=== PATIENT | male | born 1935 | race Caucasian/White ===

== ENCOUNTER → 2017-02-24 | Outpatient (CLI) | payer MEDICARE, BC, OTHER | LOC: M LAB 14:43 | PROVIDERS: ATTEND Urology | DX: Z85.46 Personal history of malignant neoplasm of prostate (principal); Z51.81 Encounter for therapeutic drug level monitoring; Z79.01 Long term (current) use of anticoagulants; I26.99 Other pulmonary embolism without acute cor pulmonale; I82.611 Acute embolism and thrombosis of superficial veins of right upper extremity ==

== ENCOUNTER → 2017-02-24 | Outpatient (CLI) | payer MEDICARE, BC, OTHER ==
[2017-02-24 15:40] LABS: INR 4.18
== END ==
LOC: M LAB 14:45
PROVIDERS: ATTEND Internal Medicine
DX: Z51.81 Encounter for therapeutic drug level monitoring (principal); Z79.01 Long term (current) use of anticoagulants; I26.99 Other pulmonary embolism without acute cor pulmonale; I82.611 Acute embolism and thrombosis of superficial veins of right upper extremity

== ENCOUNTER → 2017-04-02 | Outpatient (CLI) | payer MEDICARE, BC, OTHER ==
[2017-04-02 09:40] LABS: INR 3.56
== END ==
LOC: M LAB 09:01
PROVIDERS: ATTEND Internal Medicine
DX: Z79.01 Long term (current) use of anticoagulants (principal); I26.99 Other pulmonary embolism without acute cor pulmonale; I82.611 Acute embolism and thrombosis of superficial veins of right upper extremity

== ENCOUNTER → 2017-04-06 | Outpatient (CLI) | payer MEDICARE, BC, OTHER ==
[2017-04-06 10:09] LABS: BASO % 0.8 % (0.0-1.0); EOS # 0.3 K/mm3 (0.0-0.50); EOS % 7.2 % (0.0-3.0); LARGE UNSTAINED CELL # 0.1 K/mm3 (0.0-0.4); LYMPH # 0.6 K/mm3 (1.5-4.5); LYMPH % 10.6 % (24.0-44.0); MEAN CORPUSCULAR HEMOGLOBIN 30.8 pg (27.0-33.0); MEAN CORPUSCULAR HGB CONC 34.1 g/dl (32.0-36.5); MEAN CORPUSCULAR VOLUME 90.5 fl (80.0-96.0); MONO # 0.5 K/mm3 (0.0-0.8); MONO % 9.4 % (0.0-5.0); NEUTROPHILS # 3.3 K/mm3 (1.8-7.7); NEUTROPHILS % 70.1 % (36.0-66.0); PLATELET COUNT, AUTOMATED 233 k/mm3 (150-450); WHITE BLOOD COUNT 4.8 K/mm3 (4.0-10.0)
[2017-04-06 11:10] LABS: ALBUMIN 3.4 GM/DL (3.2-5.2); ALBUMIN/GLOBULIN RATIO 1.26 (1.00-1.93); ALKALINE PHOSPHATASE 73 U/L (45-117); ALT/SGPT 36 U/L (12-78); ANION GAP 6 MEQ/L (8-16); AST/SGOT 24 U/L (15-37); BILIRUBIN,TOTAL 0.8 MG/DL (0.2-1.0); BLOOD UREA NITROGEN 14 MG/DL (7-18); CALCIUM LEVEL 8.8 MG/DL (8.8-10.2); CARBON DIOXIDE LEVEL 28 MEQ/L (21-32); CHLORIDE LEVEL 101 MEQ/L (98-107); CHOLESTEROL LEVEL 175 MG/DL (<200); CREATININE FOR GFR 0.73 MG/DL (0.70-1.30); FREE T4 1.13 NG/DL (0.76-1.46); GLOMERULAR FILTRATION RATE > 60.0 (>42); GLUCOSE, FASTING 90 MG/DL (83-110); POTASSIUM SERUM 4.1 MEQ/L (3.5-5.1); SODIUM LEVEL 135 MEQ/L (136-145); TOTAL PROTEIN 6.1 GM/DL (6.4-8.2); TRIGLYCERIDES LEVEL 140 MG/DL (<150)
== END ==
LOC: M LAB 08:57
PROVIDERS: ATTEND Internal Medicine
DX: Z51.81 Encounter for therapeutic drug level monitoring (principal); Z79.01 Long term (current) use of anticoagulants; I26.99 Other pulmonary embolism without acute cor pulmonale; I82.611 Acute embolism and thrombosis of superficial veins of right upper extremity; M79.1 Myalgia; Z79.4 Long term (current) use of insulin; E11.9 Type 2 diabetes mellitus without complications; E78.00 Pure hypercholesterolemia, unspecified; E55.9 Vitamin D deficiency, unspecified

== ENCOUNTER → 2017-04-19 | Outpatient (CLI) | payer MEDICARE, BC, OTHER ==
[2017-04-19 14:28] LABS: INR 2.56
== END ==
LOC: M LAB 13:37
PROVIDERS: ATTEND Internal Medicine
DX: Z51.81 Encounter for therapeutic drug level monitoring (principal); Z79.01 Long term (current) use of anticoagulants; I26.99 Other pulmonary embolism without acute cor pulmonale; I82.611 Acute embolism and thrombosis of superficial veins of right upper extremity

== ENCOUNTER → 2017-05-08 | Outpatient (CLI) | payer MEDICARE, BC, OTHER ==
[2017-05-08 18:56] LABS: INR 2.14
== END ==
LOC: M LAB 17:42
PROVIDERS: ATTEND Internal Medicine
DX: I82.611 Acute embolism and thrombosis of superficial veins of right upper extremity (principal); Z79.01 Long term (current) use of anticoagulants; I26.99 Other pulmonary embolism without acute cor pulmonale; Z51.81 Encounter for therapeutic drug level monitoring

== ENCOUNTER → 2017-05-20 | Outpatient (REF) | payer MEDICARE, BC, OTHER | LOC: M LAB REF 08:30 | PROVIDERS: ATTEND Internal Medicine Gastroenterology | DX: R19.4 Change in bowel habit (principal); A04.7 Enterocolitis due to Clostridium difficile ==

== ENCOUNTER → 2017-05-31 | Outpatient (CLI) | payer MEDICARE, BC, OTHER ==
[2017-05-31 08:41] LABS: INR 2.14
== END ==
LOC: M LAB 08:02
PROVIDERS: ATTEND Internal Medicine
DX: Z79.01 Long term (current) use of anticoagulants (principal); I82.611 Acute embolism and thrombosis of superficial veins of right upper extremity; I26.99 Other pulmonary embolism without acute cor pulmonale; Z51.81 Encounter for therapeutic drug level monitoring

== ENCOUNTER → 2017-06-21 | Outpatient (CLI) | payer MEDICARE, BC, OTHER ==
[2017-06-21 09:09] LABS: INR 2.35
== END ==
LOC: M LAB 08:06
PROVIDERS: ATTEND Internal Medicine
DX: I82.611 Acute embolism and thrombosis of superficial veins of right upper extremity (principal); Z51.81 Encounter for therapeutic drug level monitoring; I26.99 Other pulmonary embolism without acute cor pulmonale; Z79.01 Long term (current) use of anticoagulants

== ENCOUNTER → 2017-07-19 | Outpatient (CLI) | payer MEDICARE, BC, OTHER ==
[2017-07-19 09:21] LABS: INR 1.51
== END ==
LOC: M LAB 08:10
PROVIDERS: ATTEND Internal Medicine
DX: Z51.81 Encounter for therapeutic drug level monitoring (principal); Z79.01 Long term (current) use of anticoagulants

== ENCOUNTER → 2017-07-19 | Outpatient (CLI) | payer MEDICARE, BC, OTHER | LOC: M LAB 08:06 | PROVIDERS: ATTEND Urology | DX: Z51.81 Encounter for therapeutic drug level monitoring (principal); Z79.01 Long term (current) use of anticoagulants; Z85.46 Personal history of malignant neoplasm of prostate ==

== ENCOUNTER → 2018-04-07 | Outpatient (CLI) | payer MEDICARE, BC, OTHER ==
[2018-04-07 09:00] LABS: CHOLESTEROL LEVEL 348 MG/DL (<200); FREE T4 0.95 NG/DL (0.76-1.46); HDL CHOLESTEROL 58 MG/DL (>40); LDL CHOLESTEROL 229.4 MG/DL (<100); NON-HDL-C 290 MG/DL; TRIGLYCERIDES LEVEL 303 MG/DL (<150)
[2018-04-07 09:44] LABS: ESTIMATED AVERAGE GLUCOSE 134 MG/DL (60-110); HEMOGLOBIN A1c 6.3 %
== END ==
LOC: M LAB 08:02
DX: E11.9 Type 2 diabetes mellitus without complications (principal)
CPT/HCPCS: 84443

== ENCOUNTER → 2018-06-09 | Outpatient (CLI) | payer MEDICARE, BC, OTHER ==
[2018-06-09 12:15] LABS: BASO # 0.1 10^3/uL (0.0-0.2); BASO % 1.2 % (0.0-1.0); EOS # 0.2 10^3/uL (0.0-0.50); EOS % 5.3 % (0.0-3.0); HEMATOCRIT 46.4 % (42.0-52.0); HEMOGLOBIN 15.1 g/dl (13.5-17.5); IMMATURE GRANULOCYTE % 0.2 % (0-3.0); LYMPH # 0.6 10^3/uL (1.5-4.5); LYMPH % 13.2 % (24.0-44.0); MEAN CORPUSCULAR HEMOGLOBIN 27.8 pg (27.0-33.0); MEAN CORPUSCULAR HGB CONC 32.5 g/dl (32.0-36.5); MEAN CORPUSCULAR VOLUME 85.5 fl (80.0-96.0); MONO # 0.6 10^3/uL (0.0-0.8); MONO % 13.6 % (0.0-5.0); NEUTROPHILS # 2.9 10^3/uL (1.8-7.7); NEUTROPHILS % 66.5 % (36.0-66.0); PLATELET COUNT, AUTOMATED 268 10^3/uL (150-450); RED BLOOD COUNT 5.43 10^6/uL (4.30-6.10); RED CELL DISTRIBUTION WIDTH 15.4 % (11.5-14.5); WHITE BLOOD COUNT 4.3 10^3/uL (4.0-10.0)
[2018-06-09 12:48] LABS: ESTIMATED AVERAGE GLUCOSE 137 MG/DL (60-110); HEMOGLOBIN A1c 6.4 %
[2018-06-09 12:49] LABS: ALBUMIN 3.5 GM/DL (3.2-5.2); ALBUMIN/GLOBULIN RATIO 1.06 (1.00-1.93); ALKALINE PHOSPHATASE 75 U/L (45-117); ALT/SGPT 26 U/L (12-78); ANION GAP 8 MEQ/L (8-16); AST/SGOT 13 U/L (7-37); BILIRUBIN,TOTAL 0.6 MG/DL (0.2-1.0); BLOOD UREA NITROGEN 11 MG/DL (7-18); CALCIUM LEVEL 9.2 MG/DL (8.8-10.2); CARBON DIOXIDE LEVEL 29 MEQ/L (21-32); CHLORIDE LEVEL 106 MEQ/L (98-107); CREATININE FOR GFR 0.82 MG/DL (0.70-1.30); FREE T4 0.94 NG/DL (0.76-1.46); GLOMERULAR FILTRATION RATE > 60.0 (>35); GLUCOSE, FASTING 113 MG/DL (70-100); POTASSIUM SERUM 4.3 MEQ/L (3.5-5.1); SODIUM LEVEL 143 MEQ/L (136-145); TOTAL PROTEIN 6.8 GM/DL (6.4-8.2)
[2018-06-09 14:01] LABS: VITAMIN B12 LEVEL 490 PG/ML
[2018-06-09 16:55] LABS: FOLATE > 24.0 NG/ML
[2018-06-16 00:07] LABS: VITAMIN B1 LEVEL WHOLE BLOOD 163.6 nmol/L (66.5-200.0); VITAMIN B6,PYRIDOXAL PHOSPHATE 37.1 ug/L (5.3-46.7); VITAMIN E(ALPHA TOCOPHEROL) 18.7 mg/L (9.0-29.0); VITAMIN E(GAMMA TOCOPHEROL) 1.1 mg/L (0.5-4.9)
== END ==
LOC: M LAB 11:02
DX: G45.9 Transient cerebral ischemic attack, unspecified (principal); Z13.29 Encounter for screening for other suspected endocrine disorder; Z11.3 Encounter for screening for infections with a predominantly sexual mode of transmission; R41.3 Other amnesia
CPT/HCPCS: 82746

== ENCOUNTER → 2018-07-20 | Outpatient (CLI) | payer MEDICARE, BC, OTHER ==
[2018-07-20 14:00] LABS: PROSTATIC SPECIFIC AG MONITOR 0.03 NG/ML (< 4.0)
== END ==
LOC: M LAB 12:58
DX: Z85.46 Personal history of malignant neoplasm of prostate (principal)
CPT/HCPCS: 84153

== ENCOUNTER → 2019-02-16 | Outpatient (CLI) | payer MEDICARE, BC, OTHER | LOC: M LAB 11:27 | PROVIDERS: ATTEND Urology | DX: C61 Malignant neoplasm of prostate (principal) ==

== ENCOUNTER → 2019-03-22 | Outpatient (CLI) | payer MEDICARE, BC, OTHER ==
[2019-03-22 11:22] LABS: HEMATOCRIT 49.6 % (42.0-52.0); HEMOGLOBIN 16.8 g/dl (13.5-17.5); MEAN CORPUSCULAR HEMOGLOBIN 31.5 pg (27.0-33.0); MEAN CORPUSCULAR HGB CONC 33.9 g/dl (32.0-36.5); MEAN CORPUSCULAR VOLUME 93.1 fl (80.0-96.0); PLATELET COUNT, AUTOMATED 304 10^3/uL (150-450); RED BLOOD COUNT 5.33 10^6/uL (4.30-6.10); WHITE BLOOD COUNT 6.5 10^3/uL (4.0-10.0)
[2019-03-22 11:41] LABS: BLOOD UREA NITROGEN 10 MG/DL (7-18); CALCIUM LEVEL 9.2 MG/DL (8.8-10.2); CARBON DIOXIDE LEVEL 28 MEQ/L (21-32); CHLORIDE LEVEL 104 MEQ/L (98-107); GLOMERULAR FILTRATION RATE > 60.0 (>35); GLUCOSE, FASTING 161 MG/DL (70-100); POTASSIUM SERUM 4.4 MEQ/L (3.5-5.1); SODIUM LEVEL 138 MEQ/L (136-145)
== END ==
LOC: M LAB 10:46
DX: Z51.81 Encounter for therapeutic drug level monitoring (principal); Z79.01 Long term (current) use of anticoagulants; I26.99 Other pulmonary embolism without acute cor pulmonale; I82.611 Acute embolism and thrombosis of superficial veins of right upper extremity

== ENCOUNTER 2019-04-18 09:40 | Day surgery (SDC) | payer MEDICARE, BC, OTHER ==
[~2019-04-18] VITALS: Ht 177.8 cm; Wt 74.6 kg
[~2019-04-18 09:40] MED LIST: ALBU83IN; CENT1TAB PO; ELIQ5TAB PO; FLOM0.4C39 PO; LIDOCAINE 1% MDV 20ML VIAL SQ PRN; LISI-1046 PO; LR 1,000 ML IV ONE; PLAV1TAB2 PO; VYTO10TA25 PO; ceFAZolin SOD 1 GM in D5W MINI-BAG PLUS 50 ML IV ONE
[2019-04-18] MEDS ORDERED: fentaNYL 100 MCG/2 ML INJECTION (J3010) As Ordered ONE (11:09)
[2019-04-18] MEDS ORDERED: PROPOFOL 500 MG/50 ML VIAL As Ordered ONE (11:09)
[2019-04-18] MEDS ORDERED: LIDOCAINE 2% INJ 100 MG/5 ML SDV (FOR ANES.) As Ordered ONE (11:09)
[2019-04-18] MEDS ORDERED: ALBU83IN INH (11:43)
[2019-04-18] MEDS ORDERED: BUPIVACAINE/EPIN 0.25% 30 ML VIAL As Ordered ONE (12:31)
[2019-04-18] MEDS ORDERED: ePHEDrine SULFATE 25 MG/5 ML(5MG/ML) SYRINGE As Ordered ONE (13:19)
[2019-04-18] MEDS ORDERED: GLYCOPYRROLATE INJ 0.2 MG/ML 2 ML VIAL As Ordered ONE (13:19)
[2019-04-18 14:30] VITALS: BP 139/71
[2019-04-18] MEDS ORDERED: LR 1,000 ML IV SCH (14:30)
[2019-04-18] MEDS ORDERED: ONDANSETRON 4MG/2ML VIAL (J2405) IV PRN (14:30)
[2019-04-18] MEDS ORDERED: PERCOCET 5MG/325MG TAB PO PRN (14:30)
--- NOTE | 2019-05-02 15:10 | RO ---
DATE OF PROCEDURE: 04/18/2019 PREOPERATIVE DIAGNOSIS: Left forearm skin lesion (skin cancer). POSTOPERATIVE DIAGNOSIS: Left forearm skin lesion (skin cancer). PROCEDURE: Excision of left forearm skin cancer (3 cm with complex layered closure). SURGEON: Dr. Dagoberto Hernandez ANESTHESIA: IV sedation plus local. ESTIMATED BLOOD LOSS: Minimal. FLUIDS: Crystalloid. BRIEF PROCEDURE AND SUMMARY: The patient was brought to the operating room and was given IV sedation and was prepped and draped in the usual sterile fashion and local lidocaine mixed with epinephrine was infiltrated into the skin, subcutaneous tissue on the left arm. The lesion itself was almost 3 cm in length and almost 2 cm in width and there was some thickening of the skin edges this to get adequate margins a significant elliptical skin incision was performed along the length of his left arm and this was removed with a combination of sharp and blunt dissection and electrocautery. The skin itself was removed and sent to pathology. It did not seem to involve the underlying fascia or be invasive underlying fascia. The patient did have significant focal skin loss in this area and thus to move enough skin I needed to create some skin flaps bilaterally and after creating the skin flaps off the fascia the incision ended up being almost 15 cm in length. The dissection of the tissue eventually made it so that the underlying dermis could be brought together and starting from each end I worked towards the middle where the biggest gap was and eventually this came together adequately but with still some skin tension in this area. The skin was so atrophic though there was a very attenuated dermis that I felt was not amenable to subcuticular closure and thus I used philippe to close the incision after this two-layered closure of #2-0 Vicryl deep layer and #3-0 Vicryl superficial subcutaneous tissue. Antibiotic ointment and dry sterile dressing was applied and a Coban wrap. The patient was awakened from his sedation, brought to recovery room, awake, alert, hemodynamically stable. Sponge and needle counts correct times two.
== END 2019-04-18 14:42 | disposition home or self-care (01) ==
LOC: M SDC 09:40
PROVIDERS: ATTEND Surgery
DX: C44.629 Squamous cell carcinoma of skin of left upper limb, including shoulder (principal); I10 Essential (primary) hypertension; E78.5 Hyperlipidemia, unspecified; I73.9 Peripheral vascular disease, unspecified; Z79.01 Long term (current) use of anticoagulants; Z79.899 Other long term (current) drug therapy; D86.0 Sarcoidosis of lung; Z92.3 Personal history of irradiation
CPT/HCPCS: 11603; 13121; 88305; J0690; J3010

== ENCOUNTER → 2019-05-25 | Outpatient (CLI) | payer MEDICARE, BC, OTHER ==
[~2019-05-25] MED LIST changes: +ALBU83IN INH; -LIDOCAINE 1% MDV 20ML VIAL SQ PRN; -LR 1,000 ML IV ONE; -ceFAZolin SOD 1 GM in D5W MINI-BAG PLUS 50 ML IV ONE
[2019-05-25 09:09] LABS: BASO % 0.9 % (0.0-1.0); EOS # 0.3 10^3/uL (0.0-0.50); EOS % 6.8 % (0.0-3.0); HEMATOCRIT 47.5 % (42.0-52.0); HEMOGLOBIN 15.6 g/dl (13.5-17.5); LYMPH # 0.8 10^3/uL (1.5-4.5); LYMPH % 17.1 % (24.0-44.0); MEAN CORPUSCULAR HGB CONC 32.8 g/dl (32.0-36.5); MEAN CORPUSCULAR VOLUME 94.4 fl (80.0-96.0); MONO # 0.6 10^3/uL (0.0-0.8); NEUTROPHILS # 2.7 10^3/uL (1.8-7.7); NEUTROPHILS % 61.1 % (36.0-66.0); PLATELET COUNT, AUTOMATED 238 10^3/uL (150-450); RED BLOOD COUNT 5.03 10^6/uL (4.30-6.10); WHITE BLOOD COUNT 4.4 10^3/uL (4.0-10.0)
[2019-05-25 09:28] LABS: ALBUMIN 3.5 GM/DL (3.2-5.2); ALT/SGPT 27 U/L (12-78); BILIRUBIN,TOTAL 0.9 MG/DL (0.2-1.0); BLOOD UREA NITROGEN 22 MG/DL (7-18); CALCIUM LEVEL 8.9 MG/DL (8.8-10.2); CARBON DIOXIDE LEVEL 26 MEQ/L (21-32); CHLORIDE LEVEL 108 MEQ/L (98-107); CHOLESTEROL LEVEL 161 MG/DL (<200); CHOLESTEROL RISK RATIO 2.205 (<5); CREATININE FOR GFR 0.87 MG/DL (0.70-1.30); GLOMERULAR FILTRATION RATE > 60.0 (>35); GLUCOSE, FASTING 102 MG/DL (70-100); HDL CHOLESTEROL 73 MG/DL (>40); LDL CHOLESTEROL 67 MG/DL (<100); NON-HDL-C 88 MG/DL; POTASSIUM SERUM 4.5 MEQ/L (3.5-5.1); SODIUM LEVEL 140 MEQ/L (136-145); TOTAL PROTEIN 6.5 GM/DL (6.4-8.2); TRIGLYCERIDES LEVEL 107 MG/DL (<150)
[2019-05-25 11:00] LABS: HEMOGLOBIN A1c 6.7 %
== END ==
LOC: M LAB 08:27
PROVIDERS: ATTEND Nurse Practitioner Family
DX: Z00.00 Encounter for general adult medical examination without abnormal findings (principal); Z79.899 Other long term (current) drug therapy

== ENCOUNTER → 2019-07-24 | Outpatient (CLI) | payer MEDICARE, BC, OTHER ==
[2019-07-24 12:18] LABS: BLOOD UREA NITROGEN 16 MG/DL (7-18); CREATININE FOR GFR 0.86 MG/DL (0.70-1.30); GLOMERULAR FILTRATION RATE > 60.0 (>35)
== END ==
LOC: M LAB 11:31
PROVIDERS: ATTEND Urology
DX: R31.1 Benign essential microscopic hematuria (principal)

== ENCOUNTER → 2019-07-27 | Outpatient (CLI) | payer MEDICARE, BC, OTHER ==
[~2019-07-27] MED LIST changes: +ISOVUE-370 76% 100ML VIAL (Q9967) As Ordered ONE
--- NOTE | 2019-07-27 15:41 | REP ---
CT abdomen and pelvis without and with IV contrast: CT urography: History: Gross hematuria. The patient gives a history of prostate carcinoma. Comparison is made with CT chest imaging from December 25, 2014. CT contrast dose: 100 mL of intravenous Isovue 370. CT findings: Preliminary digital director banking radiograph shows a normal bowel gas pattern. There are fiducial markers visible at the level of the prostate. There is a large discogenic spur on the right at L2-3. There are nodular opacities in the lower lobes bilaterally which appear to be similar to or unchanged from the findings on CT study December 25, 2014 in this patient suggesting granulomatous disease. No pleural effusion is seen. The liver and the spleen are normal in size, homogeneous in texture. There is a subcentimeter cyst in the right lobe of the liver inferiorly. No adrenal lesion is seen on either side. There is no abnormality in the pancreas. The gallbladder is unremarkable. 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 The aorta measures 3.5 cm in right to left dimension by 2.5 cm anteroposterior. There is moderate vascular calcification. There is no evidence of upper tract intrarenal calculus. No hydronephrosis is seen on either side. There is a tiny cortical cyst in the left mid kidney measuring 9 mm in greatest diameter. There is a complex cyst projecting peripherally in the lower pole of the left kidney. This measures 3.5 x 2.8 x 2.9 cm. There is slight wall thickening and slight contrast enhancement in the wall of the cyst on postcontrast images. No nodule is appreciated. This is not included in the field of view of the prior chest CT. There is no comparison imaging. No bladder calculus is seen. There is no evidence of enhancing bladder mass or filling defect on delayed images in the urinary bladder. Fiducial markers are seen in the prostate bed. Delayed scans show no filling defect in the collecting system on either side. Ureters describe a normal course to the urinary bladder. There is left colonic diverticulosis without CT evidence of diverticulitis. Small and large intestinal bowel loops are unremarkable. No bony destructive lesion is appreciated. Impression: Complex cystic lesion lower pole left kidney, 3.5 cm in greatest diameter with slightly thickened wall and wall enhancement. 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 Followup imaging recommended. Fiducial markers are seen in the prostate bed. There is a infrarenal abdominal aortic aneurysm measuring 3.5 cm in right to left dimension. Electronically Signed by Stanton Mcgovern MD 07/27/2019 04:32 P
== END ==
LOC: M RAD 09:11
PROVIDERS: ATTEND Urology
DX: R31.0 Gross hematuria (principal); N28.1 Cyst of kidney, acquired
CPT/HCPCS: 74178; Q9967

== ENCOUNTER → 2020-06-25 | Outpatient (CLI) | payer BC, OTHER ==
[~2020-06-25] MED LIST changes: -ISOVUE-370 76% 100ML VIAL (Q9967) As Ordered ONE; -LISI-1046 PO; +LISI2.5T2 PO
== END ==
LOC: M LAB 09:30
PROVIDERS: ATTEND Nurse Practitioner Adult Health
DX: Z85.46 Personal history of malignant neoplasm of prostate (principal)

== ENCOUNTER → 2021-03-14 | Outpatient (CLI) | payer MEDICARE, BC, OTHER | LOC: M LAB 10:56 | PROVIDERS: ATTEND Nurse Practitioner Adult Health | DX: Z85.46 Personal history of malignant neoplasm of prostate (principal) ==

== ENCOUNTER → 2022-03-07 | Outpatient (CLI) | payer MEDICARE, BC, OTHER ==
[~2022-03-07] MED LIST changes: -LISI2.5T2 PO; +LISI2.5T9 PO
[2022-03-07 10:37] LABS: BLOOD UREA NITROGEN 19 MG/DL (7-18); CARBON DIOXIDE LEVEL 27 MEQ/L (21-32); CHLORIDE LEVEL 108 MEQ/L (98-107); CREATININE FOR GFR 0.86 MG/DL (0.70-1.30); GLOMERULAR FILTRATION RATE > 60.0 (>35); GLUCOSE, FASTING 136 MG/DL (70-100); POTASSIUM SERUM 4.3 MEQ/L (3.5-5.1); SODIUM LEVEL 138 MEQ/L (136-145)
[2022-03-07 10:38] LABS: CALCIUM LEVEL 8.9 MG/DL (8.8-10.2)
[2022-03-10 23:09] LABS: PSA TOTAL <0.1 ng/mL (0.0-4.0)
== END ==
LOC: M LAB 09:42
PROVIDERS: ATTEND Urology
DX: D41.02 Neoplasm of uncertain behavior of left kidney (principal); Z85.46 Personal history of malignant neoplasm of prostate

== ENCOUNTER → 2022-04-04 | Outpatient (CLI) | payer MEDICARE, BC, OTHER ==
[~2022-04-04] MED LIST changes: +ALBU2.5V10; +ALBU2.5V10 INH; -ALBU83IN; -ALBU83IN INH
[2022-04-04 11:02] LABS: ALBUMIN 3.5 GM/DL (3.2-5.2); BLOOD UREA NITROGEN 10 MG/DL (7-18); CALCIUM LEVEL 9.3 MG/DL (8.8-10.2); CARBON DIOXIDE LEVEL 29 MEQ/L (21-32); CHLORIDE LEVEL 105 MEQ/L (98-107); CREATININE FOR GFR 0.79 MG/DL (0.70-1.30); GLOMERULAR FILTRATION RATE > 60.0 (>35); GLUCOSE, FASTING 91 MG/DL (70-100); PHOSPHORUS LEVEL 3.1 MG/DL (2.5-4.9); POTASSIUM SERUM 4.3 MEQ/L (3.5-5.1); SODIUM LEVEL 139 MEQ/L (136-145)
== END ==
LOC: M LAB 09:16
PROVIDERS: ATTEND Physician Assistant
DX: R05.9 Cough, unspecified (principal)

== ENCOUNTER → 2022-07-21 | Outpatient (CLI) | payer MEDICARE, BC, OTHER ==
[~2022-07-21] MED LIST changes: +ALBU8.5H INH; +BACT800T5 PO; +BACTDSTA; +CLOP75TA99 PO; +DEXT4TAB83 PO; +EZET-20 PO; +EZET1TAB96 PO; +GLUC1INJ21 SC; +INSUHUMDS SC; +KETO2CR EXT; +MEMA1TAB3; +MEMA1TAB3 PO; +METF-838; +METF-838 PO; +MULT-40 PO; +NS10IV IV; +PANT20TA6; +PANT20TA6 PO; -PLAV1TAB2 PO; +SERT25TA21; +SERT25TA21 PO; -VYTO10TA25 PO
== END ==
LOC: M PLAIMG 10:58
PROVIDERS: ATTEND Internal Medicine Pulmonary Disease
DX: D86.9 Sarcoidosis, unspecified (principal); J84.10 Pulmonary fibrosis, unspecified; R91.8 Other nonspecific abnormal finding of lung field; I77.810 Thoracic aortic ectasia; M47.9 Spondylosis, unspecified

== ENCOUNTER 2022-07-29 08:51 | Emergency (ER) | payer MEDICARE, BC, OTHER ==
[~2022-07-29] VITALS: Ht 177.8 cm; Wt 75.0 kg
[~2022-07-29 08:51] MED LIST changes: -ALBU8.5H INH; -BACT800T5 PO; -BACTDSTA; -CLOP75TA99 PO; -DEXT4TAB83 PO; -EZET1TAB96 PO; -GLUC1INJ21 SC; -INSUHUMDS SC; -KETO2CR EXT; -MEMA1TAB3; -MEMA1TAB3 PO; -METF-838; -METF-838 PO; -MULT-40 PO; -NS10IV IV; -PANT20TA6; -PANT20TA6 PO; +PLAV1TAB2 PO; -SERT25TA21; -SERT25TA21 PO
[2022-07-29] MEDS ORDERED: METF-838 (08:57)
[2022-07-29] MEDS ORDERED: BACTDSTA (08:57)
[2022-07-29] MEDS ORDERED: MEMA1TAB3 (08:57)
[2022-07-29] MEDS ORDERED: SERT25TA21 (08:57)
[2022-07-29] MEDS ORDERED: PANT20TA6 (08:57)
[2022-07-29 10:49] LABS: BASO % 0.5 % (0.0-1.0); EOS # 0.3 10^3/uL (0.0-0.5); EOS % 4.6 % (0.0-3.0); HEMATOCRIT 43.5 % (42.0-52.0); HEMOGLOBIN 14.6 g/dl (13.5-17.5); LYMPH # 0.7 10^3/uL (1.5-5.0); LYMPH % 9.5 % (24.0-44.0); MEAN CORPUSCULAR HEMOGLOBIN 31.1 pg (27.0-33.0); MEAN CORPUSCULAR HGB CONC 33.6 g/dl (32.0-36.5); MEAN CORPUSCULAR VOLUME 92.6 fl (80.0-96.0); MONO # 0.9 10^3/uL (0.0-0.8); MONO % 12.4 % (2.0-8.0); NEUTROPHILS # 5.3 10^3/uL (1.5-8.5); NEUTROPHILS % 72.5 % (36.0-66.0); PLATELET COUNT, AUTOMATED 261 10^3/uL (150-450); WHITE BLOOD COUNT 7.3 10^3/uL (4.0-10.0)
[2022-07-29 11:04] LABS: INR 1.1; PROTHROMBIN TIME 14.6 SECONDS (12.7-14.5)
[2022-07-29 11:33] LABS: BLOOD UREA NITROGEN 12 MG/DL (7-18); CALCIUM LEVEL 8.9 MG/DL (8.8-10.2); CARBON DIOXIDE LEVEL 29 MEQ/L (21-32); CHLORIDE LEVEL 105 MEQ/L (98-107); GLOMERULAR FILTRATION RATE > 60.0 (>35); GLUCOSE, FASTING 103 MG/DL (70-100); POTASSIUM SERUM 4.4 MEQ/L (3.5-5.1); SODIUM LEVEL 136 MEQ/L (136-145)
[2022-07-29 12:07] VITALS: BP 153/81
[2022-08-19] MEDS ORDERED: PLAV1TAB2 PO (10:21)
== END 2022-07-29 12:09 | disposition home or self-care (01) ==
LOC: M ED 08:51
DX: L03.115 Cellulitis of right lower limb (principal); L97.519 Non-pressure chronic ulcer of other part of right foot with unspecified severity; E11.9 Type 2 diabetes mellitus without complications; I10 Essential (primary) hypertension; Z86.718 Personal history of other venous thrombosis and embolism; Z86.711 Personal history of pulmonary embolism; I73.9 Peripheral vascular disease, unspecified; Z79.01 Long term (current) use of anticoagulants; Z79.02 Long term (current) use of antithrombotics/antiplatelets; Z79.899 Other long term (current) drug therapy; Z91.018 Allergy to other foods

== ENCOUNTER 2022-08-06 16:47 | Inpatient (IN) | payer MEDICARE, BC, OTHER ==
[~2022-08-06] VITALS: Ht 177.8 cm; Wt 73.1 kg
[~2022-08-06 16:47] MED LIST changes: +BACTDSTA; +MEMA1TAB3; +METF-838; +PANT20TA6; +SERT25TA21
[2022-08-06 19:33] LABS: BASO % 0.2 % (0.0-1.0); EOS # 0.3 10^3/uL (0.0-0.5); EOS % 4.9 % (0.0-3.0); HEMATOCRIT 41.4 % (42.0-52.0); HEMOGLOBIN 14.3 g/dl (13.5-17.5); LYMPH # 0.5 10^3/uL (1.5-5.0); LYMPH % 8.4 % (24.0-44.0); MEAN CORPUSCULAR HEMOGLOBIN 30.2 pg (27.0-33.0); MEAN CORPUSCULAR HGB CONC 34.5 g/dl (32.0-36.5); MEAN CORPUSCULAR VOLUME 87.5 fl (80.0-96.0); MONO # 0.7 10^3/uL (0.0-0.8); MONO % 12.6 % (2.0-8.0); NEUTROPHILS # 3.9 10^3/uL (1.5-8.5); NEUTROPHILS % 73.3 % (36.0-66.0); PLATELET COUNT, AUTOMATED 231 10^3/uL (150-450); RED BLOOD COUNT 4.73 10^6/uL (4.30-6.10); WHITE BLOOD COUNT 5.3 10^3/uL (4.0-10.0)
[2022-08-06 20:02] LABS: ALBUMIN 2.9 GM/DL (3.2-5.2); ALT/SGPT 134 U/L (12-78); BILIRUBIN,DIRECT 0.4 MG/DL (0.0-0.2); BILIRUBIN,TOTAL 0.8 MG/DL (0.2-1.0); BLOOD UREA NITROGEN 17 MG/DL (7-18); CALCIUM LEVEL 8.7 MG/DL (8.8-10.2); CARBON DIOXIDE LEVEL 23 MEQ/L (21-32); CHLORIDE LEVEL 97 MEQ/L (98-107); CREATININE FOR GFR 0.72 MG/DL (0.70-1.30); GLOMERULAR FILTRATION RATE > 60.0 (>35); GLUCOSE, FASTING 127 MG/DL (70-100); POTASSIUM SERUM 4.3 MEQ/L (3.5-5.1); SODIUM LEVEL 130 MEQ/L (136-145); TOTAL PROTEIN 5.9 GM/DL (6.4-8.2)
[2022-08-06 20:04] LABS: RSV AMPLIFICATION NEGATIVE (NEGATIVE)
[2022-08-06 20:12] LABS: FREE T4 1.55 NG/DL (0.76-1.46)
[2022-08-06 20:33] LABS: OSMOLALITY SERUM 274 MOSM/KG (280-301)
[2022-08-06] MEDS ORDERED: CIPROFLOXACIN 400 MG in IV 1 EA IV ONE (22:35)
[2022-08-06 23:15] LABS: HEPATITIS B SURFACE ANTIGEN NEGATIVE (NEGATIVE)
[2022-08-06 23:39] LABS: HEPATITIS B CORE ANTIBODY IGM NEGATIVE (NEGATIVE); HEPATITIS C VIRUS ABY INDEX < 0.0 INDEX (<0.8)
[2022-08-07] MEDS ORDERED: ALBU8.5H INH (01:03)
[2022-08-07] MEDS ORDERED: EZET1TAB96 PO (01:03)
[2022-08-07] MEDS ORDERED: KETO2CR EXT (01:03)
[2022-08-07] MEDS ORDERED: SERT25TA21 PO (01:03)
[2022-08-07] MEDS ORDERED: MEMA1TAB3 PO (01:03)
[2022-08-07] MEDS ORDERED: PANT20TA6 PO (01:03)
[2022-08-07] MEDS ORDERED: METF-838 PO (01:03)
[2022-08-07] MEDS ORDERED: MULT-40 PO (01:03)
[2022-08-07] MEDS ORDERED: BACT800T5 PO (01:04)
[2022-08-07] MEDS ORDERED: HOME MED LIST COMPLETE! XX SCH (01:05)
[2022-08-07] MEDS ORDERED: GLUCAGON INJ 1MG VIAL SC PRN (02:10)
[2022-08-07] MEDS ORDERED: DEXTROSE 50% 50 ML SYRINGE IV PRN (02:10)
[2022-08-07] MEDS ORDERED: GLUCOSE 4GM CHEW TABLET PO PRN (02:10)
[2022-08-07] MEDS ORDERED: NS 500 ML IV ONE (02:35)
[2022-08-07] MEDS: NS 1,000 ML IV SCH ×2 (05:00→13:07)
[2022-08-07] MEDS: INSULIN LISPRO (NovoLOG) PER UNIT SC SCH ×4 (06:12→21:00)
[2022-08-07 06:18] LABS: VENOUS BASE EXCESS -2.5 (-2.0-2.0); VENOUS HCO3 21.1 MEQ/L (23.0-27.0); VENOUS PARTIAL PRESSURE O2 69.3 mmHg (30.0-50.0); VENOUS PH 7.423 UNITS (7.330-7.430); VENOUS STANDARD HCO3 22.3 MEQ/L; VENOUS TOTAL CO2 22.1 MEQ/L (24.0-28.0)
[2022-08-07 06:54] LABS: ALBUMIN 2.7 GM/DL (3.2-5.2); ALT/SGPT 113 U/L (12-78); BILIRUBIN,TOTAL 0.7 MG/DL (0.2-1.0); BLOOD UREA NITROGEN 13 MG/DL (7-18); CALCIUM LEVEL 8.5 MG/DL (8.8-10.2); CARBON DIOXIDE LEVEL 25 MEQ/L (21-32); CHLORIDE LEVEL 99 MEQ/L (98-107); GLOMERULAR FILTRATION RATE > 60.0 (>35); GLUCOSE, FASTING 111 MG/DL (70-100); POTASSIUM SERUM 4.1 MEQ/L (3.5-5.1); SODIUM LEVEL 133 MEQ/L (136-145); TOTAL PROTEIN 5.5 GM/DL (6.4-8.2)
[2022-08-07 08:00] VITALS: BP 142/67
[2022-08-07 12:00] VITALS: BP 119/67
[2022-08-07] MEDS ORDERED: ALBUTEROL 90 MCG/ACT 8GM HFA INHALER INH PRN (12:35)
[2022-08-07] MEDS: CLOPIDOGREL 75 MG TAB PO SCH (13:07)
[2022-08-07] MEDS: MULTIVITAMINS/MINERALS THERAP 1 TAB PO SCH (13:07)
[2022-08-07] MEDS: APIXABAN 5 MG TAB (ELIQUIS) PO SCH ×2 (13:07→21:28)
[2022-08-07 13:33] VITALS: BP 120/56
[2022-08-07] MEDS: LISINOPRIL *2.5 MG* TAB PO SCH (13:57)
[2022-08-07] MEDS: PANTOPRAZOLE 20 MG TAB PO SCH (13:58)
[2022-08-07] MEDS: MEMANTINE 5MG TABLET (NAMENDA) PO SCH ×2 (13:58→18:02)
[2022-08-07 16:57] VITALS: BP 126/63
[2022-08-07 19:53] VITALS: BP 135/65
[2022-08-07] MEDS ORDERED: EZETIMIBE 10MG TABLET (ZETIA) PO SCH (21:00)
[2022-08-07] MEDS ORDERED: SIMVASTATIN 20 MG TAB PO SCH (21:00)
[2022-08-07] MEDS: SERTRALINE HCL 25 MG TABLET PO SCH (21:28)
[2022-08-07] MEDS: CEFDINIR 300 MG CAP (OMNICEF) PO SCH (21:28)
[2022-08-07] MEDS: TAMSULOSIN 0.4 MG CAP PO SCH (21:28)
[2022-08-08] MEDS: NS 1,000 ML IV SCH ×3 (01:42→18:03)
[2022-08-08 05:51] VITALS: BP 148/78
[2022-08-08 06:28] LABS: BASO % 0.5 % (0.0-1.0); EOS # 0.4 10^3/uL (0.0-0.5); HEMATOCRIT 43.4 % (42.0-52.0); LYMPH # 0.7 10^3/uL (1.5-5.0); MEAN CORPUSCULAR HEMOGLOBIN 31.3 pg (27.0-33.0); MEAN CORPUSCULAR HGB CONC 34.6 g/dl (32.0-36.5); MEAN CORPUSCULAR VOLUME 90.4 fl (80.0-96.0); MONO # 0.9 10^3/uL (0.0-0.8); MONO % 14.1 % (2.0-8.0); NEUTROPHILS % 66.7 % (36.0-66.0); PLATELET COUNT, AUTOMATED 311 10^3/uL (150-450)
[2022-08-08 07:06] LABS: ALBUMIN 2.8 GM/DL (3.2-5.2); ALT/SGPT 125 U/L (12-78); BILIRUBIN,DIRECT 0.3 MG/DL (0.0-0.2); BILIRUBIN,TOTAL 0.7 MG/DL (0.2-1.0); BLOOD UREA NITROGEN 10 MG/DL (7-18); CALCIUM LEVEL 8.9 MG/DL (8.8-10.2); CARBON DIOXIDE LEVEL 25 MEQ/L (21-32); CHLORIDE LEVEL 103 MEQ/L (98-107); CREATININE FOR GFR 0.68 MG/DL (0.70-1.30); GLOMERULAR FILTRATION RATE > 60.0 (>35); GLUCOSE, FASTING 139 MG/DL (70-100); POTASSIUM SERUM 4.4 MEQ/L (3.5-5.1); SODIUM LEVEL 135 MEQ/L (136-145); TOTAL PROTEIN 5.8 GM/DL (6.4-8.2)
[2022-08-08 08:21] LABS: INR 1.09; PROTHROMBIN TIME 14.3 SECONDS (12.5-14.5)
[2022-08-08 08:22] LABS: PARTIAL THROMBOPLASTIN TIME 31.1 SECONDS (24.8-34.2)
[2022-08-08] MEDS: CLOPIDOGREL 75 MG TAB PO SCH (08:54)
[2022-08-08] MEDS: LISINOPRIL *2.5 MG* TAB PO SCH (08:54)
[2022-08-08] MEDS: MEMANTINE 5MG TABLET (NAMENDA) PO SCH (08:54)
[2022-08-08] MEDS: PANTOPRAZOLE 20 MG TAB PO SCH (08:54)
[2022-08-08] MEDS: MULTIVITAMINS/MINERALS THERAP 1 TAB PO SCH (08:54)
[2022-08-08] MEDS: CEFDINIR 300 MG CAP (OMNICEF) PO SCH ×2 (08:54→20:21)
[2022-08-08] MEDS: APIXABAN 5 MG TAB (ELIQUIS) PO SCH ×2 (08:54→20:21)
[2022-08-08] MEDS: INSULIN LISPRO (NovoLOG) PER UNIT SC SCH ×4 (08:55→21:00)
[2022-08-08 12:32] VITALS: BP 126/64
[2022-08-08 13:42] LABS: ALBUMIN 2.7 GM/DL (3.2-5.2); BILIRUBIN,DIRECT 0.3 MG/DL (0.0-0.2); BILIRUBIN,TOTAL 0.7 MG/DL (0.2-1.0); TOTAL PROTEIN 5.7 GM/DL (6.4-8.2)
[2022-08-08 14:00] VITALS: BP 130/69
[2022-08-08] MEDS: TAMSULOSIN 0.4 MG CAP PO SCH (20:21)
[2022-08-08] MEDS: SERTRALINE HCL 25 MG TABLET PO SCH (20:21)
[2022-08-08 21:00] VITALS: BP 133/69
[2022-08-09] MEDS: NS 1,000 ML IV SCH ×3 (04:15→20:48)
[2022-08-09 05:49] VITALS: BP 137/68
[2022-08-09 06:21] LABS: BASO % 0.7 % (0.0-1.0); EOS # 0.5 10^3/uL (0.0-0.5); EOS % 8.8 % (0.0-3.0); HEMOGLOBIN 13.6 g/dl (13.5-17.5); LYMPH # 0.7 10^3/uL (1.5-5.0); LYMPH % 12.5 % (24.0-44.0); MEAN CORPUSCULAR HEMOGLOBIN 29.7 pg (27.0-33.0); MEAN CORPUSCULAR HGB CONC 33.2 g/dl (32.0-36.5); MEAN CORPUSCULAR VOLUME 89.5 fl (80.0-96.0); MONO # 0.8 10^3/uL (0.0-0.8); MONO % 14.7 % (2.0-8.0); NEUTROPHILS # 3.4 10^3/uL (1.5-8.5); NEUTROPHILS % 62.7 % (36.0-66.0); PLATELET COUNT, AUTOMATED 294 10^3/uL (150-450); RED BLOOD COUNT 4.58 10^6/uL (4.30-6.10); WHITE BLOOD COUNT 5.4 10^3/uL (4.0-10.0)
[2022-08-09 06:50] LABS: ALBUMIN 2.5 GM/DL (3.2-5.2); ALT/SGPT 122 U/L (12-78); BILIRUBIN,DIRECT 0.3 MG/DL (0.0-0.2); BILIRUBIN,TOTAL 0.6 MG/DL (0.2-1.0); BLOOD UREA NITROGEN 7 MG/DL (7-18); CALCIUM LEVEL 8.5 MG/DL (8.8-10.2); CARBON DIOXIDE LEVEL 24 MEQ/L (21-32); CHLORIDE LEVEL 106 MEQ/L (98-107); CREATININE FOR GFR 0.55 MG/DL (0.70-1.30); GLOMERULAR FILTRATION RATE > 60.0 (>35); GLUCOSE, FASTING 125 MG/DL (70-100); SODIUM LEVEL 137 MEQ/L (136-145); TOTAL PROTEIN 5.2 GM/DL (6.4-8.2)
[2022-08-09] MEDS: INSULIN LISPRO (NovoLOG) PER UNIT SC SCH ×4 (09:07→21:00)
[2022-08-09] MEDS: CEFDINIR 300 MG CAP (OMNICEF) PO SCH ×2 (09:46→20:48)
[2022-08-09] MEDS: MEMANTINE 5MG TABLET (NAMENDA) PO SCH (09:46)
[2022-08-09] MEDS: CLOPIDOGREL 75 MG TAB PO SCH (09:46)
[2022-08-09] MEDS: APIXABAN 5 MG TAB (ELIQUIS) PO SCH ×2 (09:46→20:48)
[2022-08-09] MEDS: MULTIVITAMINS/MINERALS THERAP 1 TAB PO SCH (09:46)
[2022-08-09] MEDS: PANTOPRAZOLE 20 MG TAB PO SCH (09:46)
[2022-08-09] MEDS: LISINOPRIL *2.5 MG* TAB PO SCH (09:47)
[2022-08-09 14:00] VITALS: BP 137/78
[2022-08-09] MEDS: TAMSULOSIN 0.4 MG CAP PO SCH (20:48)
[2022-08-09] MEDS: SERTRALINE HCL 25 MG TABLET PO SCH (20:48)
[2022-08-09 21:00] VITALS: BP 138/77
[2022-08-10 04:00] VITALS: BP 152/74
[2022-08-10] MEDS: INSULIN LISPRO (NovoLOG) PER UNIT SC SCH ×4 (07:54→21:00)
[2022-08-10 08:27] LABS: HEMATOCRIT 43.3 % (42.0-52.0); HEMOGLOBIN 15.1 g/dl (13.5-17.5); MEAN CORPUSCULAR HGB CONC 34.9 g/dl (32.0-36.5); MEAN CORPUSCULAR VOLUME 88.9 fl (80.0-96.0); PLATELET COUNT, AUTOMATED 355 10^3/uL (150-450); RED BLOOD COUNT 4.87 10^6/uL (4.30-6.10); WHITE BLOOD COUNT 5.9 10^3/uL (4.0-10.0)
[2022-08-10 08:55] LABS: BLOOD UREA NITROGEN 5 MG/DL (7-18); CALCIUM LEVEL 8.9 MG/DL (8.8-10.2); CARBON DIOXIDE LEVEL 23 MEQ/L (21-32); CHLORIDE LEVEL 105 MEQ/L (98-107); GLOMERULAR FILTRATION RATE > 60.0 (>35); GLUCOSE, FASTING 171 MG/DL (70-100); POTASSIUM SERUM 4.4 MEQ/L (3.5-5.1); SODIUM LEVEL 135 MEQ/L (136-145)
[2022-08-10] MEDS: APIXABAN 5 MG TAB (ELIQUIS) PO SCH ×2 (09:06→20:16)
[2022-08-10] MEDS: MULTIVITAMINS/MINERALS THERAP 1 TAB PO SCH (09:06)
[2022-08-10] MEDS: CLOPIDOGREL 75 MG TAB PO SCH (09:06)
[2022-08-10] MEDS: PANTOPRAZOLE 20 MG TAB PO SCH (09:06)
[2022-08-10] MEDS: LISINOPRIL *2.5 MG* TAB PO SCH (09:06)
[2022-08-10] MEDS: MEMANTINE 5MG TABLET (NAMENDA) PO SCH (09:06)
[2022-08-10] MEDS: CEFDINIR 300 MG CAP (OMNICEF) PO SCH (09:06)
[2022-08-10] MEDS: NS 1,000 ML IV SCH ×2 (09:07→20:16)
[2022-08-10 10:34] LABS: ALBUMIN 2.9 GM/DL (3.2-5.2); ALT/SGPT 126 U/L (12-78); BILIRUBIN,DIRECT 0.3 MG/DL (0.0-0.2); BILIRUBIN,TOTAL 0.6 MG/DL (0.2-1.0)
[2022-08-10] MEDS: CIPROFLOXACIN 500MG TABLET PO SCH (13:01)
[2022-08-10 14:00] VITALS: BP 104/64
[2022-08-10 20:00] VITALS: BP 107/64
[2022-08-10] MEDS: SERTRALINE HCL 25 MG TABLET PO SCH (20:16)
[2022-08-10] MEDS: TAMSULOSIN 0.4 MG CAP PO SCH (20:16)
[2022-08-11] MEDS: NS 1,000 ML IV SCH (03:41)
[2022-08-11 05:20] VITALS: BP 163/81
[2022-08-11] MEDS: CIPROFLOXACIN 500MG TABLET PO SCH (05:55)
[2022-08-11] MEDS: INSULIN LISPRO (NovoLOG) PER UNIT SC SCH ×2 (07:30→12:36)
[2022-08-11 08:54] LABS: HEMATOCRIT 43.6 % (42.0-52.0); HEMOGLOBIN 14.5 g/dl (13.5-17.5); MEAN CORPUSCULAR HEMOGLOBIN 29.9 pg (27.0-33.0); MEAN CORPUSCULAR HGB CONC 33.3 g/dl (32.0-36.5); MEAN CORPUSCULAR VOLUME 89.9 fl (80.0-96.0); PLATELET COUNT, AUTOMATED 357 10^3/uL (150-450); RED BLOOD COUNT 4.85 10^6/uL (4.30-6.10); WHITE BLOOD COUNT 5.2 10^3/uL (4.0-10.0)
[2022-08-11] MEDS: CLOPIDOGREL 75 MG TAB PO SCH (08:57)
[2022-08-11] MEDS: PANTOPRAZOLE 20 MG TAB PO SCH (08:57)
[2022-08-11] MEDS: MEMANTINE 5MG TABLET (NAMENDA) PO SCH (08:57)
[2022-08-11] MEDS: MULTIVITAMINS/MINERALS THERAP 1 TAB PO SCH (08:57)
[2022-08-11 08:58] VITALS: BP 163/81
[2022-08-11] MEDS: APIXABAN 5 MG TAB (ELIQUIS) PO SCH (08:58)
[2022-08-11] MEDS: LISINOPRIL *2.5 MG* TAB PO SCH (08:58)
[2022-08-11 09:43] LABS: ALBUMIN 2.8 GM/DL (3.2-5.2); ALT/SGPT 101 U/L (12-78); BILIRUBIN,TOTAL 0.7 MG/DL (0.2-1.0); BLOOD UREA NITROGEN 7 MG/DL (7-18); CALCIUM LEVEL 8.9 MG/DL (8.8-10.2); CARBON DIOXIDE LEVEL 26 MEQ/L (21-32); CHLORIDE LEVEL 104 MEQ/L (98-107); CREATININE FOR GFR 0.63 MG/DL (0.70-1.30); GLOMERULAR FILTRATION RATE > 60.0 (>35); GLUCOSE, FASTING 129 MG/DL (70-100); POTASSIUM SERUM 4.4 MEQ/L (3.5-5.1); SODIUM LEVEL 136 MEQ/L (136-145); TOTAL PROTEIN 5.9 GM/DL (6.4-8.2)
[2022-08-11] MEDS ORDERED: GLUC1INJ21 SC (12:20)
[2022-08-11] MEDS ORDERED: NS10IV IV (12:20)
[2022-08-11] MEDS ORDERED: INSUHUMDS SC ×2 (12:20)
[2022-08-11] MEDS ORDERED: DEXT4TAB83 PO (12:20)
[2022-08-11 14:00] VITALS: BP 135/65
== END 2022-08-11 14:27 | DRG 71 ==
LOC: M ED 16:47 → M ED INP 08-07 02:09 → ENRESERV 08-07 12:54 → M PCU 08-07 13:34 → M MSPAV 08-07 16:53
PROVIDERS: ADMIT Internal Medicine; ATTEND Internal Medicine
DX: G93.41 Metabolic encephalopathy (principal); N39.0 Urinary tract infection, site not specified; E87.1 Hypo-osmolality and hyponatremia; E11.9 Type 2 diabetes mellitus without complications; I10 Essential (primary) hypertension; K21.9 Gastro-esophageal reflux disease without esophagitis; F03.90 Unspecified dementia, unspecified severity, without behavioral disturbance, psychotic disturbance, mood disturbance, and anxiety; Z79.4 Long term (current) use of insulin; Z79.899 Other long term (current) drug therapy; Z91.013 Allergy to seafood; Z79.01 Long term (current) use of anticoagulants; Z86.718 Personal history of other venous thrombosis and embolism; I45.10 Unspecified right bundle-branch block

== ENCOUNTER 2022-08-11 12:03 | Inpatient (IN) | payer MEDICARE, BC, OTHER ==
[~2022-08-11] VITALS: Ht 177.8 cm; Wt 69.0 kg
[~2022-08-11 12:03] MED LIST changes: +ALBU8.5H INH; +BACT800T5 PO; +CLOP75TA99 PO; +EZET1TAB96 PO; +KETO2CR EXT; +MEMA1TAB3 PO; +METF-838 PO; +MULT-40 PO; +PANT20TA6 PO; -PLAV1TAB2 PO; +SERT25TA21 PO
[2022-08-11] MEDS ORDERED: GLUC1INJ21 SC (12:20)
[2022-08-11] MEDS ORDERED: DEXT4TAB83 PO (12:20)
[2022-08-11] MEDS ORDERED: INSUHUMDS SC ×2 (12:20)
[2022-08-11] MEDS ORDERED: NS10IV IV (12:20)
[2022-08-11] MEDS ORDERED: BISACODYL 10 MG SUPP PR PRN (13:50)
[2022-08-11] MEDS ORDERED: GLUCAGON INJ 1MG VIAL SC PRN (13:50)
[2022-08-11] MEDS ORDERED: GLUCOSE 4GM CHEW TABLET PO PRN (13:50)
[2022-08-11] MEDS ORDERED: DEXTROSE 50% 50 ML SYRINGE IV PRN (13:50)
[2022-08-11] MEDS ORDERED: ONDANSETRON 4MG TAB PO PRN (13:50)
[2022-08-11] MEDS ORDERED: ALBUTEROL 90 MCG/ACT 8GM HFA INHALER INH PRN (13:50)
[2022-08-11 14:00] VITALS: BP 122/66
[2022-08-11] MEDS: INSULIN LISPRO (NovoLOG) PER UNIT SC SCH ×2 (17:18→20:32)
[2022-08-11 20:22] VITALS: BP 138/67
[2022-08-11] MEDS: TAMSULOSIN 0.4 MG CAP PO SCH (20:25)
[2022-08-11] MEDS: SENNA 8.6 MG TAB (SENOKOT) PO SCH (20:25)
[2022-08-11] MEDS: DOCUSATE SODIUM 100MG CAPSULE PO SCH (20:25)
[2022-08-11] MEDS: SERTRALINE HCL 25 MG TABLET PO SCH (20:25)
[2022-08-11] MEDS: APIXABAN 5 MG TAB (ELIQUIS) PO SCH (20:25)
[2022-08-11] MEDS: RAMELTEON 8 MG TAB (ROZEREM) PO PRN (22:42)
[2022-08-12 06:00] VITALS: BP 135/66
[2022-08-12 08:01] LABS: BASO # 0.1 10^3/uL (0.0-0.2); EOS # 0.4 10^3/uL (0.0-0.5); EOS % 6.8 % (0.0-3.0); HEMATOCRIT 46.5 % (42.0-52.0); HEMOGLOBIN 15.1 g/dl (13.5-17.5); LYMPH # 1.1 10^3/uL (1.5-5.0); LYMPH % 18.6 % (24.0-44.0); MEAN CORPUSCULAR HEMOGLOBIN 29.7 pg (27.0-33.0); MEAN CORPUSCULAR HGB CONC 32.5 g/dl (32.0-36.5); MEAN CORPUSCULAR VOLUME 91.5 fl (80.0-96.0); MONO # 1.1 10^3/uL (0.0-0.8); MONO % 17.9 % (2.0-8.0); NEUTROPHILS # 3.3 10^3/uL (1.5-8.5); NEUTROPHILS % 54.7 % (36.0-66.0); PLATELET COUNT, AUTOMATED 387 10^3/uL (150-450); RED BLOOD COUNT 5.08 10^6/uL (4.30-6.10)
[2022-08-12] MEDS: DOCUSATE SODIUM 100MG CAPSULE PO SCH ×2 (09:00→21:06)
[2022-08-12 09:10] LABS: ALBUMIN 3.1 GM/DL (3.2-5.2); ALT/SGPT 94 U/L (12-78); BILIRUBIN,TOTAL 0.8 MG/DL (0.2-1.0); BLOOD UREA NITROGEN 10 MG/DL (7-18); CALCIUM LEVEL 9.2 MG/DL (8.8-10.2); CARBON DIOXIDE LEVEL 29 MEQ/L (21-32); CHLORIDE LEVEL 102 MEQ/L (98-107); CREATININE FOR GFR 0.83 MG/DL (0.70-1.30); GLOMERULAR FILTRATION RATE > 60.0 (>35); GLUCOSE, FASTING 141 MG/DL (70-100); POTASSIUM SERUM 4.7 MEQ/L (3.5-5.1); SODIUM LEVEL 134 MEQ/L (136-145); TOTAL PROTEIN 6.2 GM/DL (6.4-8.2)
[2022-08-12] MEDS: PANTOPRAZOLE 40MG TAB (PROTONIX) PO SCH (09:47)
[2022-08-12] MEDS: MULTIVITAMINS/MINERALS THERAP 1 TAB PO SCH (09:48)
[2022-08-12] MEDS: MEMANTINE 5MG TABLET (NAMENDA) PO SCH (09:48)
[2022-08-12] MEDS: LISINOPRIL *2.5 MG* TAB PO SCH (09:48)
[2022-08-12] MEDS: INSULIN LISPRO (NovoLOG) PER UNIT SC SCH ×4 (09:48→21:00)
[2022-08-12] MEDS: CLOPIDOGREL 75 MG TAB PO SCH (09:48)
[2022-08-12] MEDS: APIXABAN 5 MG TAB (ELIQUIS) PO SCH ×2 (09:48→21:07)
[2022-08-12 14:00] VITALS: BP 133/60
[2022-08-12] MEDS: ACETAMINOPHEN TAB 650MG DOSE (2X325MG) PO PRN (18:35)
[2022-08-12 20:00] VITALS: BP 129/68
[2022-08-12] MEDS: SERTRALINE HCL 25 MG TABLET PO SCH (21:06)
[2022-08-12] MEDS: RAMELTEON 8 MG TAB (ROZEREM) PO PRN (21:06)
[2022-08-12] MEDS: TAMSULOSIN 0.4 MG CAP PO SCH (21:07)
[2022-08-12] MEDS: SENNA 8.6 MG TAB (SENOKOT) PO SCH (21:07)
[2022-08-13 06:00] VITALS: BP 110/62
[2022-08-13 08:44] LABS: BASO # 0.1 10^3/uL (0.0-0.2); BASO % 1.4 % (0.0-1.0); EOS # 0.4 10^3/uL (0.0-0.5); EOS % 6.1 % (0.0-3.0); HEMATOCRIT 45.9 % (42.0-52.0); HEMOGLOBIN 15.3 g/dl (13.5-17.5); MEAN CORPUSCULAR HEMOGLOBIN 30.1 pg (27.0-33.0); MEAN CORPUSCULAR HGB CONC 33.3 g/dl (32.0-36.5); MEAN CORPUSCULAR VOLUME 90.2 fl (80.0-96.0); MONO # 1.1 10^3/uL (0.0-0.8); MONO % 18.3 % (2.0-8.0); NEUTROPHILS # 3.2 10^3/uL (1.5-8.5); PLATELET COUNT, AUTOMATED 376 10^3/uL (150-450); RED BLOOD COUNT 5.09 10^6/uL (4.30-6.10); WHITE BLOOD COUNT 5.8 10^3/uL (4.0-10.0)
[2022-08-13] MEDS: INSULIN LISPRO (NovoLOG) PER UNIT SC SCH ×4 (09:08→20:47)
[2022-08-13] MEDS: DOCUSATE SODIUM 100MG CAPSULE PO SCH ×2 (09:08→20:47)
[2022-08-13] MEDS: APIXABAN 5 MG TAB (ELIQUIS) PO SCH ×2 (09:09→20:47)
[2022-08-13] MEDS: MULTIVITAMINS/MINERALS THERAP 1 TAB PO SCH (09:09)
[2022-08-13] MEDS: CLOPIDOGREL 75 MG TAB PO SCH (09:09)
[2022-08-13] MEDS: ACETAMINOPHEN TAB 650MG DOSE (2X325MG) PO PRN ×2 (09:09→17:56)
[2022-08-13] MEDS: MEMANTINE 5MG TABLET (NAMENDA) PO SCH (09:09)
[2022-08-13] MEDS: LISINOPRIL *2.5 MG* TAB PO SCH (09:09)
[2022-08-13] MEDS: PANTOPRAZOLE 40MG TAB (PROTONIX) PO SCH (09:09)
[2022-08-13 09:14] LABS: BLOOD UREA NITROGEN 11 MG/DL (7-18); CARBON DIOXIDE LEVEL 28 MEQ/L (21-32); CHLORIDE LEVEL 102 MEQ/L (98-107); CREATININE FOR GFR 0.83 MG/DL (0.70-1.30); GLOMERULAR FILTRATION RATE > 60.0 (>35); GLUCOSE, FASTING 153 MG/DL (70-100); POTASSIUM SERUM 4.6 MEQ/L (3.5-5.1); SODIUM LEVEL 135 MEQ/L (136-145)
[2022-08-13] MEDS: FLUTICASONE PROP 0.05% NASAL SPRAY 16 GM (FLONASE) NARES SCH ×2 (13:00→20:47)
[2022-08-13] MEDS: COMBIVENT RESPIMAT 100-20MCG INHALER 4GM INH SCH ×2 (13:57→21:15)
[2022-08-13 14:00] VITALS: BP 129/66
[2022-08-13] MEDS: SODIUM CHLORIDE NASAL 0.65% SPRAY BTL (OCEAN) SCH ×2 (17:56→20:47)
[2022-08-13 20:00] VITALS: BP 120/75
[2022-08-13] MEDS: SERTRALINE HCL 25 MG TABLET PO SCH (20:46)
[2022-08-13] MEDS: SENNA 8.6 MG TAB (SENOKOT) PO SCH (20:46)
[2022-08-13] MEDS: TAMSULOSIN 0.4 MG CAP PO SCH (20:47)
[2022-08-13] MEDS ORDERED: HOME MED LIST COMPLETE! XX SCH (21:55)
[2022-08-14 06:00] VITALS: BP 132/65
[2022-08-14] MEDS: COMBIVENT RESPIMAT 100-20MCG INHALER 4GM INH SCH ×3 (07:36→20:03)
[2022-08-14] MEDS: INSULIN LISPRO (NovoLOG) PER UNIT SC SCH ×4 (08:37→20:10)
[2022-08-14] MEDS: DOCUSATE SODIUM 100MG CAPSULE PO SCH ×2 (08:37→20:09)
[2022-08-14] MEDS: MEMANTINE 5MG TABLET (NAMENDA) PO SCH (08:37)
[2022-08-14] MEDS: FLUTICASONE PROP 0.05% NASAL SPRAY 16 GM (FLONASE) NARES SCH ×2 (08:38→20:10)
[2022-08-14] MEDS: SODIUM CHLORIDE NASAL 0.65% SPRAY BTL (OCEAN) SCH ×3 (08:38→20:10)
[2022-08-14] MEDS: APIXABAN 5 MG TAB (ELIQUIS) PO SCH ×2 (08:38→20:10)
[2022-08-14] MEDS: PANTOPRAZOLE 40MG TAB (PROTONIX) PO SCH (08:38)
[2022-08-14] MEDS: CLOPIDOGREL 75 MG TAB PO SCH (08:38)
[2022-08-14] MEDS: LISINOPRIL *2.5 MG* TAB PO SCH (08:38)
[2022-08-14] MEDS: MULTIVITAMINS/MINERALS THERAP 1 TAB PO SCH (08:38)
[2022-08-14 11:46] LABS: BASO # 0.1 10^3/uL (0.0-0.2); BASO % 1.1 % (0.0-1.0); EOS # 0.4 10^3/uL (0.0-0.5); EOS % 5.1 % (0.0-3.0); HEMOGLOBIN 15.5 g/dl (13.5-17.5); LYMPH # 1.2 10^3/uL (1.5-5.0); LYMPH % 16.3 % (24.0-44.0); MEAN CORPUSCULAR HEMOGLOBIN 29.8 pg (27.0-33.0); MEAN CORPUSCULAR VOLUME 90.4 fl (80.0-96.0); MONO # 1.2 10^3/uL (0.0-0.8); MONO % 16.6 % (2.0-8.0); NEUTROPHILS # 4.3 10^3/uL (1.5-8.5); NEUTROPHILS % 59.9 % (36.0-66.0); PLATELET COUNT, AUTOMATED 421 10^3/uL (150-450); WHITE BLOOD COUNT 7.1 10^3/uL (4.0-10.0)
[2022-08-14 12:13] LABS: BLOOD UREA NITROGEN 15 MG/DL (7-18); CALCIUM LEVEL 9.7 MG/DL (8.8-10.2); CARBON DIOXIDE LEVEL 27 MEQ/L (21-32); CHLORIDE LEVEL 101 MEQ/L (98-107); CREATININE FOR GFR 0.95 MG/DL (0.70-1.30); GLOMERULAR FILTRATION RATE > 60.0 (>35); GLUCOSE, FASTING 125 MG/DL (70-100); POTASSIUM SERUM 4.6 MEQ/L (3.5-5.1); SODIUM LEVEL 136 MEQ/L (136-145)
[2022-08-14 14:00] VITALS: BP 109/61
[2022-08-14 19:37] VITALS: BP 169/77
[2022-08-14 19:56] VITALS: BP 122/72
[2022-08-14] MEDS: SENNA 8.6 MG TAB (SENOKOT) PO SCH (20:10)
[2022-08-14] MEDS: SERTRALINE HCL 25 MG TABLET PO SCH (20:10)
[2022-08-14] MEDS: TAMSULOSIN 0.4 MG CAP PO SCH (20:10)
[2022-08-15] MEDS: ACETAMINOPHEN TAB 650MG DOSE (2X325MG) PO PRN (01:30)
[2022-08-15] MEDS: RAMELTEON 8 MG TAB (ROZEREM) PO PRN ×2 (01:31→19:47)
[2022-08-15 05:37] VITALS: BP 112/55
[2022-08-15 05:40] VITALS: BP 129/84
[2022-08-15 06:00] VITALS: BP 112/55
[2022-08-15] MEDS: DOCUSATE SODIUM 100MG CAPSULE PO SCH ×2 (07:33→19:47)
[2022-08-15] MEDS: APIXABAN 5 MG TAB (ELIQUIS) PO SCH ×2 (07:33→19:47)
[2022-08-15] MEDS: MULTIVITAMINS/MINERALS THERAP 1 TAB PO SCH (07:33)
[2022-08-15] MEDS: MEMANTINE 5MG TABLET (NAMENDA) PO SCH (07:33)
[2022-08-15] MEDS: PANTOPRAZOLE 40MG TAB (PROTONIX) PO SCH (07:33)
[2022-08-15] MEDS: CLOPIDOGREL 75 MG TAB PO SCH (07:33)
[2022-08-15] MEDS: LISINOPRIL *2.5 MG* TAB PO SCH (07:33)
[2022-08-15] MEDS: FLUTICASONE PROP 0.05% NASAL SPRAY 16 GM (FLONASE) NARES SCH ×2 (07:34→19:48)
[2022-08-15] MEDS: INSULIN LISPRO (NovoLOG) PER UNIT SC SCH ×4 (07:34→19:48)
[2022-08-15] MEDS: SODIUM CHLORIDE NASAL 0.65% SPRAY BTL (OCEAN) SCH ×3 (07:34→19:48)
[2022-08-15 07:50] LABS: ALT/SGPT 57 U/L (12-78); BILIRUBIN,TOTAL 0.8 MG/DL (0.2-1.0); BLOOD UREA NITROGEN 16 MG/DL (7-18); CALCIUM LEVEL 9.3 MG/DL (8.8-10.2); CARBON DIOXIDE LEVEL 29 MEQ/L (21-32); CHLORIDE LEVEL 102 MEQ/L (98-107); CREATININE FOR GFR 0.91 MG/DL (0.70-1.30); GLOMERULAR FILTRATION RATE > 60.0 (>35); GLUCOSE, FASTING 137 MG/DL (70-100); POTASSIUM SERUM 4.7 MEQ/L (3.5-5.1); SODIUM LEVEL 134 MEQ/L (136-145); TOTAL PROTEIN 6.2 GM/DL (6.4-8.2)
[2022-08-15] MEDS: COMBIVENT RESPIMAT 100-20MCG INHALER 4GM INH SCH ×3 (08:22→19:58)
[2022-08-15 14:00] VITALS: BP 152/68
[2022-08-15] MEDS: SENNA 8.6 MG TAB (SENOKOT) PO SCH (19:47)
[2022-08-15] MEDS: SERTRALINE HCL 25 MG TABLET PO SCH (19:47)
[2022-08-15] MEDS: TAMSULOSIN 0.4 MG CAP PO SCH (19:47)
[2022-08-15 20:00] VITALS: BP 134/67
[2022-08-16] MEDS: ACETAMINOPHEN TAB 650MG DOSE (2X325MG) PO PRN ×2 (03:38→21:29)
[2022-08-16 06:00] VITALS: BP 138/73
[2022-08-16] MEDS: COMBIVENT RESPIMAT 100-20MCG INHALER 4GM INH SCH ×3 (08:00→20:00)
[2022-08-16] MEDS: LISINOPRIL *2.5 MG* TAB PO SCH (08:22)
[2022-08-16] MEDS: APIXABAN 5 MG TAB (ELIQUIS) PO SCH ×2 (08:22→21:28)
[2022-08-16] MEDS: PANTOPRAZOLE 40MG TAB (PROTONIX) PO SCH (08:22)
[2022-08-16] MEDS: CLOPIDOGREL 75 MG TAB PO SCH (08:22)
[2022-08-16] MEDS: DOCUSATE SODIUM 100MG CAPSULE PO SCH ×2 (08:22→21:28)
[2022-08-16] MEDS: MULTIVITAMINS/MINERALS THERAP 1 TAB PO SCH (08:22)
[2022-08-16] MEDS: MEMANTINE 5MG TABLET (NAMENDA) PO SCH (08:22)
[2022-08-16] MEDS: SODIUM CHLORIDE NASAL 0.65% SPRAY BTL (OCEAN) SCH ×3 (08:23→21:29)
[2022-08-16] MEDS: INSULIN LISPRO (NovoLOG) PER UNIT SC SCH ×4 (08:23→21:00)
[2022-08-16] MEDS: FLUTICASONE PROP 0.05% NASAL SPRAY 16 GM (FLONASE) NARES SCH ×2 (08:23→21:29)
[2022-08-16 14:00] VITALS: BP 141/67
[2022-08-16 20:00] VITALS: BP 129/61
[2022-08-16] MEDS: RAMELTEON 8 MG TAB (ROZEREM) PO PRN (21:28)
[2022-08-16] MEDS: TAMSULOSIN 0.4 MG CAP PO SCH (21:28)
[2022-08-16] MEDS: SENNA 8.6 MG TAB (SENOKOT) PO SCH (21:28)
[2022-08-16] MEDS: SERTRALINE HCL 25 MG TABLET PO SCH (21:28)
[2022-08-17 06:00] VITALS: BP 124/67
[2022-08-17 07:08] LABS: BASO # 0.1 10^3/uL (0.0-0.2); BASO % 1.3 % (0.0-1.0); EOS # 0.3 10^3/uL (0.0-0.5); EOS % 5.9 % (0.0-3.0); HEMOGLOBIN 14.2 g/dl (13.5-17.5); LYMPH # 1.1 10^3/uL (1.5-5.0); LYMPH % 20.1 % (24.0-44.0); MEAN CORPUSCULAR HEMOGLOBIN 30.3 pg (27.0-33.0); MEAN CORPUSCULAR HGB CONC 33.8 g/dl (32.0-36.5); MEAN CORPUSCULAR VOLUME 89.7 fl (80.0-96.0); MONO # 0.9 10^3/uL (0.0-0.8); MONO % 17.3 % (2.0-8.0); NEUTROPHILS % 54.8 % (36.0-66.0); PLATELET COUNT, AUTOMATED 378 10^3/uL (150-450); RED BLOOD COUNT 4.68 10^6/uL (4.30-6.10); WHITE BLOOD COUNT 5.4 10^3/uL (4.0-10.0)
[2022-08-17] MEDS: COMBIVENT RESPIMAT 100-20MCG INHALER 4GM INH SCH ×3 (07:26→18:49)
[2022-08-17 07:48] LABS: BLOOD UREA NITROGEN 12 MG/DL (7-18); CALCIUM LEVEL 9.2 MG/DL (8.8-10.2); CARBON DIOXIDE LEVEL 27 MEQ/L (21-32); CHLORIDE LEVEL 101 MEQ/L (98-107); CREATININE FOR GFR 0.76 MG/DL (0.70-1.30); GLOMERULAR FILTRATION RATE > 60.0 (>35); GLUCOSE, FASTING 128 MG/DL (70-100); POTASSIUM SERUM 4.3 MEQ/L (3.5-5.1); SODIUM LEVEL 133 MEQ/L (136-145)
[2022-08-17] MEDS: PANTOPRAZOLE 40MG TAB (PROTONIX) PO SCH (08:13)
[2022-08-17] MEDS: INSULIN LISPRO (NovoLOG) PER UNIT SC SCH ×4 (08:13→20:22)
[2022-08-17] MEDS: APIXABAN 5 MG TAB (ELIQUIS) PO SCH ×2 (08:13→20:21)
[2022-08-17] MEDS: LISINOPRIL *2.5 MG* TAB PO SCH (08:13)
[2022-08-17] MEDS: DOCUSATE SODIUM 100MG CAPSULE PO SCH ×2 (08:13→20:21)
[2022-08-17] MEDS: MEMANTINE 5MG TABLET (NAMENDA) PO SCH (08:13)
[2022-08-17] MEDS: CLOPIDOGREL 75 MG TAB PO SCH (08:13)
[2022-08-17] MEDS: MULTIVITAMINS/MINERALS THERAP 1 TAB PO SCH (08:13)
[2022-08-17] MEDS: FLUTICASONE PROP 0.05% NASAL SPRAY 16 GM (FLONASE) NARES SCH ×2 (08:14→20:22)
[2022-08-17] MEDS: SODIUM CHLORIDE NASAL 0.65% SPRAY BTL (OCEAN) SCH ×3 (08:14→20:22)
[2022-08-17 14:25] VITALS: BP 144/65
[2022-08-17] MEDS: ACETAMINOPHEN TAB 650MG DOSE (2X325MG) PO PRN (17:09)
[2022-08-17 20:00] VITALS: BP 121/62
[2022-08-17] MEDS: SENNA 8.6 MG TAB (SENOKOT) PO SCH (20:21)
[2022-08-17] MEDS: SERTRALINE HCL 25 MG TABLET PO SCH (20:21)
[2022-08-17] MEDS: TAMSULOSIN 0.4 MG CAP PO SCH (20:21)
[2022-08-17] MEDS: RAMELTEON 8 MG TAB (ROZEREM) PO PRN (20:21)
[2022-08-18 06:00] VITALS: BP 135/67
[2022-08-18] MEDS: DOCUSATE SODIUM 100MG CAPSULE PO SCH ×2 (08:15→20:28)
[2022-08-18] MEDS: PANTOPRAZOLE 40MG TAB (PROTONIX) PO SCH (08:15)
[2022-08-18] MEDS: MEMANTINE 5MG TABLET (NAMENDA) PO SCH (08:15)
[2022-08-18] MEDS: CLOPIDOGREL 75 MG TAB PO SCH (08:15)
[2022-08-18] MEDS: MULTIVITAMINS/MINERALS THERAP 1 TAB PO SCH (08:15)
[2022-08-18] MEDS: LISINOPRIL *2.5 MG* TAB PO SCH (08:15)
[2022-08-18] MEDS: APIXABAN 5 MG TAB (ELIQUIS) PO SCH ×2 (08:16→20:28)
[2022-08-18] MEDS: SODIUM CHLORIDE NASAL 0.65% SPRAY BTL (OCEAN) SCH ×3 (08:16→20:29)
[2022-08-18] MEDS: INSULIN LISPRO (NovoLOG) PER UNIT SC SCH ×4 (08:16→20:29)
[2022-08-18] MEDS: FLUTICASONE PROP 0.05% NASAL SPRAY 16 GM (FLONASE) NARES SCH ×2 (08:16→20:29)
[2022-08-18] MEDS: COMBIVENT RESPIMAT 100-20MCG INHALER 4GM INH SCH ×3 (08:30→20:00)
[2022-08-18] MEDS: ACETAMINOPHEN TAB 650MG DOSE (2X325MG) PO PRN (12:11)
[2022-08-18 14:00] VITALS: BP 110/58
[2022-08-18 20:00] VITALS: BP 121/82
[2022-08-18] MEDS: TAMSULOSIN 0.4 MG CAP PO SCH (20:28)
[2022-08-18] MEDS: SERTRALINE HCL 25 MG TABLET PO SCH (20:28)
[2022-08-18] MEDS: SENNA 8.6 MG TAB (SENOKOT) PO SCH (20:28)
[2022-08-19 05:31] VITALS: BP 127/64
[2022-08-19 06:34] LABS: BASO # 0.1 10^3/uL (0.0-0.2); BASO % 1.1 % (0.0-1.0); EOS # 0.3 10^3/uL (0.0-0.5); EOS % 4.4 % (0.0-3.0); HEMATOCRIT 42.4 % (42.0-52.0); HEMOGLOBIN 14.1 g/dl (13.5-17.5); MEAN CORPUSCULAR HEMOGLOBIN 30.1 pg (27.0-33.0); MEAN CORPUSCULAR HGB CONC 33.3 g/dl (32.0-36.5); MEAN CORPUSCULAR VOLUME 90.6 fl (80.0-96.0); MONO # 0.9 10^3/uL (0.0-0.8); MONO % 15.1 % (2.0-8.0); NEUTROPHILS # 3.5 10^3/uL (1.5-8.5); PLATELET COUNT, AUTOMATED 347 10^3/uL (150-450); RED BLOOD COUNT 4.68 10^6/uL (4.30-6.10); WHITE BLOOD COUNT 5.7 10^3/uL (4.0-10.0)
[2022-08-19 07:11] LABS: BLOOD UREA NITROGEN 13 MG/DL (7-18); CALCIUM LEVEL 9.2 MG/DL (8.8-10.2); CARBON DIOXIDE LEVEL 28 MEQ/L (21-32); CHLORIDE LEVEL 101 MEQ/L (98-107); CREATININE FOR GFR 0.78 MG/DL (0.70-1.30); GLOMERULAR FILTRATION RATE > 60.0 (>35); GLUCOSE, FASTING 108 MG/DL (70-100); POTASSIUM SERUM 4.4 MEQ/L (3.5-5.1); SODIUM LEVEL 135 MEQ/L (136-145)
[2022-08-19] MEDS: DOCUSATE SODIUM 100MG CAPSULE PO SCH (08:43)
[2022-08-19] MEDS: MEMANTINE 5MG TABLET (NAMENDA) PO SCH (08:43)
[2022-08-19 08:44] VITALS: BP 127/64
[2022-08-19] MEDS: FLUTICASONE PROP 0.05% NASAL SPRAY 16 GM (FLONASE) NARES SCH (08:44)
[2022-08-19] MEDS: MULTIVITAMINS/MINERALS THERAP 1 TAB PO SCH (08:44)
[2022-08-19] MEDS: SODIUM CHLORIDE NASAL 0.65% SPRAY BTL (OCEAN) SCH (08:44)
[2022-08-19] MEDS: PANTOPRAZOLE 40MG TAB (PROTONIX) PO SCH (08:44)
[2022-08-19] MEDS: LISINOPRIL *2.5 MG* TAB PO SCH (08:44)
[2022-08-19] MEDS: CLOPIDOGREL 75 MG TAB PO SCH (08:44)
[2022-08-19] MEDS: APIXABAN 5 MG TAB (ELIQUIS) PO SCH (08:44)
[2022-08-19] MEDS: INSULIN LISPRO (NovoLOG) PER UNIT SC SCH (08:44)
[2022-08-19] MEDS ORDERED: LISI2.5T9 PO (10:21)
[2022-08-19] MEDS ORDERED: ELIQ5TAB PO (10:21)
[2022-08-19] MEDS ORDERED: SERT25TA21 PO (10:21)
[2022-08-19] MEDS ORDERED: PANT20TA6 PO (10:21)
[2022-08-19] MEDS ORDERED: FLOM0.4C39 PO (10:21)
[2022-08-19] MEDS ORDERED: CLOP75TA99 PO (10:21)
[2022-08-19] MEDS ORDERED: MEMA1TAB3 PO (10:21)
== END 2022-08-19 11:50 | disposition home or self-care (01) | DRG 71 ==
LOC: M PM&R 14:59
PROVIDERS: ADMIT Physical Medicine & Rehabilitation; ATTEND Physical Medicine & Rehabilitation
DX: G93.41 Metabolic encephalopathy (principal); E87.1 Hypo-osmolality and hyponatremia; R13.10 Dysphagia, unspecified; N32.9 Bladder disorder, unspecified; F03.90 Unspecified dementia, unspecified severity, without behavioral disturbance, psychotic disturbance, mood disturbance, and anxiety; R26.89 Other abnormalities of gait and mobility; Z86.718 Personal history of other venous thrombosis and embolism; E11.51 Type 2 diabetes mellitus with diabetic peripheral angiopathy without gangrene; K21.9 Gastro-esophageal reflux disease without esophagitis; Z95.820 Peripheral vascular angioplasty status with implants and grafts; Z74.09 Other reduced mobility; Z74.1 Need for assistance with personal care; R94.5 Abnormal results of liver function studies; Z79.01 Long term (current) use of anticoagulants; Z79.02 Long term (current) use of antithrombotics/antiplatelets; Z79.4 Long term (current) use of insulin; Z79.899 Other long term (current) drug therapy; Z91.018 Allergy to other foods; I10 Essential (primary) hypertension; E78.5 Hyperlipidemia, unspecified; Z95.828 Presence of other vascular implants and grafts; N40.0 Benign prostatic hyperplasia without lower urinary tract symptoms; E11.621 Type 2 diabetes mellitus with foot ulcer; S91.301D Unspecified open wound, right foot, subsequent encounter; T37.0X5A Adverse effect of sulfonamides, initial encounter

== ENCOUNTER → 2022-08-28 | Outpatient (CLI) | payer MEDICARE, BC, OTHER ==
[~2022-08-28] MED LIST changes: +CLOP75TA2 PO; +DEXT4TAB83 PO; +GLUC1INJ21 SC; +INSUHUMDS SC; +LISI2.5T8 PO; +NS10IV IV; +SERT50TA29 PO; +TAMS1CAP17 PO; +TRAM50TA2 PO; +VITMTA PO
[2022-08-28 17:18] LABS: BASO # 0.1 10^3/uL (0.0-0.2); BASO % 0.8 % (0.0-1.0); EOS # 0.3 10^3/uL (0.0-0.5); EOS % 4.2 % (0.0-3.0); HEMOGLOBIN 13.3 g/dl (13.5-17.5); LYMPH # 1.1 10^3/uL (1.5-5.0); LYMPH % 16.9 % (24.0-44.0); MEAN CORPUSCULAR HEMOGLOBIN 30.2 pg (27.0-33.0); MEAN CORPUSCULAR HGB CONC 32.4 g/dl (32.0-36.5); MEAN CORPUSCULAR VOLUME 93.2 fl (80.0-96.0); MONO # 0.9 10^3/uL (0.0-0.8); NEUTROPHILS % 63.5 % (36.0-66.0); PLATELET COUNT, AUTOMATED 314 10^3/uL (150-450); WHITE BLOOD COUNT 6.2 10^3/uL (4.0-10.0)
== END ==
LOC: M LAB 16:29
PROVIDERS: ATTEND Physician Assistant
DX: K62.5 Hemorrhage of anus and rectum (principal)

== ENCOUNTER → 2022-09-07 | Outpatient (REF) | payer MEDICARE, OTHER | LOC: M SFHCWOUN 11:50 | PROVIDERS: ATTEND Surgery | DX: L97.524 Non-pressure chronic ulcer of other part of left foot with necrosis of bone (principal) ==

== ENCOUNTER → 2022-09-07 | Outpatient (CLI) | payer MEDICARE, BC, OTHER ==
[2022-09-07 12:50] LABS: BASO # 0.1 10^3/uL (0.0-0.2); BASO % 0.7 % (0.0-1.0); EOS # 0.3 10^3/uL (0.0-0.5); EOS % 2.8 % (0.0-3.0); HEMOGLOBIN 13.9 g/dl (13.5-17.5); LYMPH % 11.6 % (24.0-44.0); MEAN CORPUSCULAR HEMOGLOBIN 29.5 pg (27.0-33.0); MEAN CORPUSCULAR HGB CONC 32.3 g/dl (32.0-36.5); MEAN CORPUSCULAR VOLUME 91.3 fl (80.0-96.0); MONO # 1.3 10^3/uL (0.0-0.8); MONO % 14.6 % (2.0-8.0); NEUTROPHILS # 6.3 10^3/uL (1.5-8.5); NEUTROPHILS % 69.6 % (36.0-66.0); PLATELET COUNT, AUTOMATED 315 10^3/uL (150-450); RED BLOOD COUNT 4.71 10^6/uL (4.30-6.10)
== END ==
LOC: M LAB 12:07
PROVIDERS: ATTEND Physician Assistant
DX: K62.5 Hemorrhage of anus and rectum (principal)

== ENCOUNTER → 2022-09-14 | Outpatient (REF) | payer MEDICARE, BC, OTHER ==
[~2022-09-14] MED LIST changes: -CLOP75TA2 PO; -LISI2.5T8 PO; -SERT50TA29 PO; -TAMS1CAP17 PO; -TRAM50TA2 PO; -VITMTA PO
== END ==
LOC: M LAB REF 16:27
PROVIDERS: ATTEND Podiatrist Foot & Ankle Surgery
DX: I96 Gangrene, not elsewhere classified (principal)

== ENCOUNTER → 2022-09-22 | Outpatient (POV) | payer MEDICARE, BC, OTHER ==
[~2022-09-22] VITALS: Ht 177.8 cm; Wt 75.0 kg
[~2022-09-22] MED LIST changes: +CLOP75TA2 PO; +LISI2.5T8 PO; +SERT50TA29 PO; +TAMS1CAP17 PO; +TRAM50TA2 PO; +VITMTA PO
[2022-09-22 10:50] VITALS: BP 136/72
== END ==
LOC: M IRPOV 10:37
PROVIDERS: ATTEND Radiology Diagnostic Radiology
DX: E11.621 Type 2 diabetes mellitus with foot ulcer (principal); D68.2 Hereditary deficiency of other clotting factors; F03.90 Unspecified dementia, unspecified severity, without behavioral disturbance, psychotic disturbance, mood disturbance, and anxiety; L97.519 Non-pressure chronic ulcer of other part of right foot with unspecified severity; Z89.421 Acquired absence of other right toe(s); Z86.711 Personal history of pulmonary embolism; Z86.718 Personal history of other venous thrombosis and embolism; Z79.01 Long term (current) use of anticoagulants; Z91.013 Allergy to seafood; Z85.46 Personal history of malignant neoplasm of prostate

== ENCOUNTER 2022-09-24 14:11 | Emergency (ER) | payer MEDICARE, BC, OTHER ==
[~2022-09-24] VITALS: Ht 180.3 cm; Wt 75.7 kg
[~2022-09-24 14:11] MED LIST changes: -CLOP75TA2 PO; -LISI2.5T8 PO; -SERT50TA29 PO; -TAMS1CAP17 PO; -TRAM50TA2 PO; -VITMTA PO
[2022-09-24 15:34] LABS: BASO % 0.3 % (0.0-1.0); EOS # 0.1 10^3/uL (0.0-0.5); HEMATOCRIT 36.6 % (42.0-52.0); HEMOGLOBIN 12.1 g/dl (13.5-17.5); LYMPH # 0.7 10^3/uL (1.5-5.0); LYMPH % 4.8 % (24.0-44.0); MEAN CORPUSCULAR HEMOGLOBIN 29.6 pg (27.0-33.0); MEAN CORPUSCULAR HGB CONC 33.1 g/dl (32.0-36.5); MEAN CORPUSCULAR VOLUME 89.5 fl (80.0-96.0); MONO # 1.5 10^3/uL (0.0-0.8); NEUTROPHILS # 11.8 10^3/uL (1.5-8.5); NEUTROPHILS % 82.3 % (36.0-66.0); PLATELET COUNT, AUTOMATED 418 10^3/uL (150-450); RED BLOOD COUNT 4.09 10^6/uL (4.30-6.10); WHITE BLOOD COUNT 14.3 10^3/uL (4.0-10.0)
[2022-09-24 15:59] LABS: MONO % 10.8 % (2.0-8.0)
[2022-09-24 16:10] LABS: RSV AMPLIFICATION NEGATIVE (NEGATIVE)
[2022-09-24 16:12] LABS: BILIRUBIN,DIRECT 0.3 MG/DL (<0.4)
[2022-09-24 16:28] LABS: ERYTHROCYTE SEDIMENTATION RATE 67 mm/hr (0-20)
[2022-09-24 17:16] LABS: ALBUMIN 2.5 G/DL (3.2-5.2); ALKALINE PHOSPHATASE 185 U/L (46-116); ALT/SGPT 39 U/L (7.0-40); AST/SGOT 43 U/L (<34); BILIRUBIN,TOTAL 0.6 MG/DL (0.3-1.2); BLOOD UREA NITROGEN 17 MG/DL (9-23); CALCIUM LEVEL 8.5 MG/DL (8.3-10.6); CARBON DIOXIDE LEVEL 28 MMOL/L (20-31); CHLORIDE LEVEL 96 MMOL/L (98-107); CREATININE FOR GFR 0.56 MG/DL (0.70-1.30); GLOMERULAR FILTRATION RATE > 60.0 (>35); GLUCOSE, FASTING 122 MG/DL (74-106); POTASSIUM SERUM 4.7 MMOL/L (3.5-5.1); SODIUM LEVEL 131 MMOL/L (136-145); TOTAL PROTEIN 5.8 G/DL (5.7-8.2)
[2022-09-24] MEDS ORDERED: PIPERACILLIN/TAZOBACTAM SOD 3.375 GM in D5W MINI-BAG PLUS 50 ML IV ONE (18:10)
[2022-09-24] MEDS ORDERED: VANCOMYCIN HCL 1,500 MG in NS 250 ML IV ONE (18:10)
[2022-09-24] MEDS ORDERED: VANCOMYCIN HCL 750 MG, VIAL MATE ADAPTER 1 EACH in D5W 250 ML IV ONE ×6 (19:00)
[2022-09-24] MEDS ORDERED: EZET1TAB96 PO (20:03)
[2022-09-24] MEDS ORDERED: TAMS1CAP17 PO (20:03)
[2022-09-24] MEDS ORDERED: CLOP75TA2 PO (20:03)
[2022-09-24] MEDS ORDERED: MEMA1TAB3 PO (20:03)
[2022-09-24] MEDS ORDERED: VITMTA PO (20:03)
[2022-09-24] MEDS ORDERED: TRAM50TA2 PO (20:03)
[2022-09-24] MEDS ORDERED: METF-838 PO (20:03)
[2022-09-24] MEDS ORDERED: SERT50TA29 PO (20:03)
[2022-09-24] MEDS ORDERED: ELIQ5TAB PO (20:03)
[2022-09-24] MEDS ORDERED: LISI2.5T8 PO (20:03)
[2022-09-24] MEDS ORDERED: PANT20TA6 PO (20:03)
[2022-09-24] MEDS ORDERED: HOME MED LIST COMPLETE! XX SCH (20:05)
[2022-09-24] MEDS ORDERED: NS 1,000 ML IV SCH (21:30)
[2022-09-24 23:15] VITALS: BP 111/59
== END 2022-09-24 23:18 | disposition short-term general hospital (02) ==
LOC: M ED 14:11
DX: L03.115 Cellulitis of right lower limb (principal); I70.90 Unspecified atherosclerosis; S00.03XA Contusion of scalp, initial encounter; W19.XXXA Unspecified fall, initial encounter; Y92.099 Unspecified place in other non-institutional residence as the place of occurrence of the external cause; I10 Essential (primary) hypertension; E11.9 Type 2 diabetes mellitus without complications; K21.9 Gastro-esophageal reflux disease without esophagitis; Z79.01 Long term (current) use of anticoagulants; Z79.84 Long term (current) use of oral hypoglycemic drugs; Z79.899 Other long term (current) drug therapy; Z91.013 Allergy to seafood
CPT/HCPCS: 70450; 72125; 80048; 80076; 83605; 85025; 85652; 86140; 87040; 87631; 93041; 93926; 94760; 96365; 96375; 99285; G0463; J2543

== ENCOUNTER → 2023-02-15 | Outpatient (REF) | payer MEDICARE, BC, OTHER ==
[~2023-02-15] MED LIST changes: +CLOP75TA2 PO; +LISI2.5T8 PO; +SERT50TA29 PO; +TAMS1CAP17 PO; +TRAM50TA2 PO; +VITMTA PO
== END ==
LOC: M LAB REF 17:54
PROVIDERS: ATTEND Surgery
DX: C44.222 Squamous cell carcinoma of skin of right ear and external auricular canal (principal)

== ENCOUNTER → 2023-04-07 | Outpatient (CLI) | payer MEDICARE, BC, OTHER | LOC: M RAD 10:55 | DX: R09.89 Other specified symptoms and signs involving the circulatory and respiratory systems (principal); I65.23 Occlusion and stenosis of bilateral carotid arteries ==

== ENCOUNTER → 2023-07-05 | Outpatient (CLI) | payer MEDICARE, BC, OTHER | LOC: M WUC 10:50 | PROVIDERS: ATTEND Student in an Organized Health Care Education/Training Program | DX: M79.642 Pain in left hand (principal); M19.031 Primary osteoarthritis, right wrist; M19.041 Primary osteoarthritis, right hand ==

== ENCOUNTER → 2023-09-29 | Outpatient (CLI) | payer MEDICARE, BC, OTHER ==
[2023-09-29 14:05] LABS: BASO # 0.1 10^3/uL (0.0-0.2); EOS # 0.3 10^3/uL (0.0-0.5); EOS % 4.7 % (0.0-3.0); HEMATOCRIT 44.7 % (42.0-52.0); HEMOGLOBIN 14.6 g/dl (13.5-17.5); LYMPH # 1.4 10^3/uL (1.5-5.0); LYMPH % 19.8 % (24.0-44.0); MEAN CORPUSCULAR HGB CONC 32.7 g/dl (32.0-36.5); MONO # 0.8 10^3/uL (0.0-0.8); NEUTROPHILS # 4.2 10^3/uL (1.5-8.5); NEUTROPHILS % 62.1 % (36.0-66.0); PLATELET COUNT, AUTOMATED 247 10^3/uL (150-450); RED BLOOD COUNT 4.86 10^6/uL (4.30-6.10); WHITE BLOOD COUNT 6.8 10^3/uL (4.0-10.0)
[2023-09-29 14:28] LABS: ALBUMIN 3.5 G/DL (3.2-5.2); ALKALINE PHOSPHATASE 74 U/L (46-116); ALT/SGPT 30 U/L (7.0-40); AST/SGOT 15 U/L (<34); BILIRUBIN,TOTAL 0.6 MG/DL (0.3-1.2); BLOOD UREA NITROGEN 17 MG/DL (9-23); CALCIUM LEVEL 9.1 MG/DL (8.3-10.6); CARBON DIOXIDE LEVEL 29 MMOL/L (20-31); CHLORIDE LEVEL 104 MMOL/L (98-107); CREATININE FOR GFR 0.77 MG/DL (0.70-1.30); GLOMERULAR FILTRATION RATE > 60.0 (>35); GLUCOSE, FASTING 197 MG/DL (74-106); POTASSIUM SERUM 4.3 MMOL/L (3.5-5.1); SODIUM LEVEL 135 MMOL/L (136-145); TOTAL PROTEIN 6.4 G/DL (5.7-8.2)
[2023-09-29 14:29] LABS: HEMOGLOBIN A1c 6.9 % (4.0-6.0)
== END ==
LOC: M LAB 12:59
PROVIDERS: ATTEND Physician Assistant
DX: E11.9 Type 2 diabetes mellitus without complications (principal)

== ENCOUNTER 2025-02-11 10:45 | Inpatient (IN) | payer MEDICARE, BC ==
[~2025-02-11] VITALS: Ht 172.7 cm; Wt 85.6 kg
[~2025-02-11 10:45] MED LIST changes: -FLOM0.4C39 PO; +TAMS-18 PO
[2025-02-11 11:05] VITALS: BP 139/58; O2SAT 97
[2025-02-11 11:14] LABS: BASO # 0.1 10^3/uL (0.0-0.2); BASO % 0.6 % (0.0-1.0); EOS # 0.4 10^3/uL (0.0-0.5); EOS % 4.5 % (0.0-3.0); HEMATOCRIT 38.6 % (42.0-52.0); HEMOGLOBIN 12.5 g/dl (13.5-17.5); LYMPH # 1.2 10^3/uL (1.5-5.0); LYMPH % 15.4 % (24.0-44.0); MEAN CORPUSCULAR HEMOGLOBIN 30.3 pg (27.0-33.0); MEAN CORPUSCULAR HGB CONC 32.4 g/dl (32.0-36.5); MEAN CORPUSCULAR VOLUME 93.7 fl (80.0-96.0); MONO # 0.8 10^3/uL (0.0-0.8); MONO % 9.7 % (2.0-8.0); NEUTROPHILS # 5.5 10^3/uL (1.5-8.5); NEUTROPHILS % 69.5 % (36.0-66.0); PLATELET COUNT, AUTOMATED 238 10^3/uL (150-450); RED BLOOD COUNT 4.12 10^6/uL (4.30-6.10); WHITE BLOOD COUNT 7.9 10^3/uL (4.0-10.0)
[2025-02-11 11:26] LABS: INR 1.13; PARTIAL THROMBOPLASTIN TIME 28.1 SECONDS (24.8-34.2); PROTHROMBIN TIME 14.8 SECONDS (12.5-14.5)
[2025-02-11 11:40] LABS: ALBUMIN 3.1 G/DL (3.2-5.2); BILIRUBIN,DIRECT 0.1 MG/DL (<0.4); BILIRUBIN,TOTAL 0.5 MG/DL (0.3-1.2); CALCIUM LEVEL 8.6 MG/DL (8.3-10.6); CREATININE FOR GFR 0.73 MG/DL (0.70-1.30); GLOMERULAR FILTRATION RATE 88.1 (>35); POTASSIUM SERUM 4.6 MMOL/L (3.5-5.1); TOTAL PROTEIN 5.9 G/DL (5.7-8.2)
[2025-02-11] MEDS ORDERED: ISOVUE-370 76% 100ML VIAL As Ordered ONE (11:40)
[2025-02-11] MEDS: LIDOCAINE 2% 5ML JELLY UROJET TOP ONE (12:30)
[2025-02-11 12:48] LABS: KETONE, URINE AUTO RFX NEGATIVE (NEGATIVE); NITRITE, URINE AUTO RFX NEGATIVE (NEGATIVE); RBC, URINE AUTO RFX TNTC /HPF (0-3); SQUAM EPITHELIAL CELL UR AURFX 0 /HPF (0-6)
[2025-02-11 12:49] LABS: LEUKOCYTE ESTERASE UR AUTO RFX 2+ (NEGATIVE); WBC, URINE AUTO RFX TNTC /HPF (0-3)
[2025-02-11] MEDS: NS 500 ML IV ONE (13:13)
[2025-02-11] MEDS: cefTRIAXone SOD 1 GM in DEXTROSE 5% (D5W) ADV/MINI-BAG 50 ML IV ONE (14:48)
[2025-02-11] MEDS ORDERED: MORPHINE 10MG/0.5ML ORAL CONCENTRATE SOLUTION U/D SL PRN (14:55)
[2025-02-11] MEDS ORDERED: SCOPOLAMINE 1MG TRANSDERMAL PATCH TOP PRN (14:55)
[2025-02-11] MEDS ORDERED: BISACODYL 10MG SUPP PR PRN (14:55)
[2025-02-11] MEDS ORDERED: ATROPINE SULFATE 1% OPHTH SOLN 2ML BTL SL PRN (14:55)
[2025-02-11] MEDS ORDERED: FLEET ENEMA PR PRN (14:55)
[2025-02-11] MEDS ORDERED: ONDANSETRON 4MG ORAL DISINTEGRATING TAB PO PRN (14:55)
[2025-02-11] MEDS ORDERED: ACETAMINOPHEN 325 MG TAB PO PRN (14:55)
[2025-02-11] MEDS ORDERED: ONDANSETRON 4MG 2ML VIAL IV PRN (14:55)
[2025-02-11] MEDS ORDERED: HYOSCYAMINE SULFATE 0.125 MG SUBL TABLET PO PRN (14:55)
[2025-02-11] MEDS: LORazepam 2 MG/ML 1ML VIAL IV PRN (19:26)
[2025-02-11] MEDS: MORPHINE 2 MG/ML 1ML VIAL IV PRN (20:11)
[2025-02-11] MEDS ORDERED: HOME MED LIST COMPLETE! XX SCH (22:45)
[2025-02-11] MEDS: ACETAMINOPHEN 650MG SUPP PR PRN (23:31)
[2025-02-12 05:28] VITALS: TEMP 100.1
[2025-02-12] MEDS: SENNA 8.6 MG TAB (SENOKOT) PO SCH (09:00)
[2025-02-12] MEDS: MORPHINE 10MG/0.5ML ORAL CONCENTRATE SOLUTION U/D SL SCH (14:00)
[2025-02-12] MEDS: LORazepam 1 MG TAB PO SCH (21:00)
[2025-02-13] MEDS: MORPHINE 10MG/0.5ML ORAL CONCENTRATE SOLUTION U/D SL PRN (09:39)
[2025-02-13] MEDS: LORazepam 1 MG TAB PO PRN (15:03)
[2025-02-16] MEDS: ACETAMINOPHEN 325MG/10.15ML UDC PO PRN (12:11)
[2025-02-17] MEDS: IPRATROPIUM 0.5MG/ALBUTEROL 2.5MG INH SOL UD 3ML NEB PRN (18:19)
[2025-02-19] MEDS ORDERED: HYOS125TA PO (07:16)
[2025-02-19] MEDS ORDERED: MORP1SOL5 PO (07:16)
[2025-02-19] MEDS ORDERED: ATIV1TAB10 PO (07:16)
== END 2025-02-19 08:33 | disposition hospice, inpatient (51) | DRG 686 ==
LOC: EDBD 10:45 → M ED 10:45 → M ED INP 16:49 → M MSPAV 02-12 08:17
PROVIDERS: ADMIT Student in an Organized Health Care Education/Training Program; ATTEND Internal Medicine
DX: C64.9 Malignant neoplasm of unspecified kidney, except renal pelvis (principal); K25.4 Chronic or unspecified gastric ulcer with hemorrhage; N39.0 Urinary tract infection, site not specified; C61 Malignant neoplasm of prostate; R31.9 Hematuria, unspecified; F03.90 Unspecified dementia, unspecified severity, without behavioral disturbance, psychotic disturbance, mood disturbance, and anxiety; I25.10 Atherosclerotic heart disease of native coronary artery without angina pectoris; E11.51 Type 2 diabetes mellitus with diabetic peripheral angiopathy without gangrene; K21.9 Gastro-esophageal reflux disease without esophagitis; Z51.5 Encounter for palliative care; Z79.01 Long term (current) use of anticoagulants; Z86.718 Personal history of other venous thrombosis and embolism; K44.9 Diaphragmatic hernia without obstruction or gangrene; Z66 Do not resuscitate; Z91.013 Allergy to seafood; Z79.899 Other long term (current) drug therapy